=== PATIENT | male | born 1950 | race Caucasian/White ===

== ENCOUNTER → 2018-02-07 | Outpatient (CLI) | payer MEDICARE, BC ==
--- NOTE | 2018-02-08 06:36 | ECHOF ---
Referral Reason:R06.02 SOB MEASUREMENTS -------- HEIGHT: 182.9 cm WEIGHT: 131.5 kg BP: RVIDd: 3.1 cm (< 3.3) IVSd: 1.4 cm (0.6 - 1.1) LVIDd: 4.7 cm (3.9 - 5.3) LVPWd: 1.5 cm (0.6 - 1.1) IVSs: 1.4 cm LVIDs: 4.1 cm LVPWs: 1.7 cm LA Diam: 4.1 cm (2.7 - 3.8) LAESV Index (A-L): 36.38 ml/m Ao Diam: 3.4 cm (2.0 - 3.7) AV Cusp: 2.2 cm (1.5 - 2.6) LA Diam: 4.3 cm (2.7 - 3.8) MV EXCURSION: 26.377 mm (> 18.000) MV EF SLOPE: 115 mm/s (70 - 150) EPSS: 0.5 cm MV E Juan: 0.55 m/s MV DecT: 244 ms MV A Juan: 0.89 m/s MV E/A Ratio: 0.62 RAP: 5.00 mmHg RVSP: 22.27 mmHg FINDINGS -------- Sinus rhythm. This was a technically adequate study. Morbid Obesity The left ventricular size is normal. There is mild concentric left ventricular hypertrophy. Overa ll left ventricular systolic function is normal with, an EF between 55 - 60 %. The right ventricle is normal in size. LA is moderately dilated 34-39 ml/m2 The right atrial size is normal. The aortic valve is trileaflet, and appears structurally normal. No aortic stenosis or regurgitation. The mitral valve is normal. Mild mitral regurgitation is present. Mild tricuspid regurgitation present. There is no evidence of pulmonary hypertension. The right v entricular systolic pressure, as measured by Doppler, is 22.27mmHg. The pulmonic valve was not well visualized. There is no pulmonic regurgitation present. The aortic root size is normal. There is no pericardial effusion. CONCLUSIONS -------- 1. Sinus rhythm. 2. Morbid Obesity 3. The left ventricular size is normal. 4. There is mild concentric left ventricular hypertrophy. 5. Overall left ventricular systolic function is normal with, an EF between 55 - 60 %. 6. LA is moderately dilated 34-39 ml/m2 7. The aortic valve is trileaflet, and appears structurally normal. No aortic stenosis or regurgitati on. 8. Mild mitral regurgitation is present. 9. Mild tricuspid regurgitation present. 10. There is no evidence of pulmonary hypertension. 11. The pulmonic valve was not well visualized. 12. There is no pulmonic regurgitation present. 13. The aortic root size is normal. 14. There is no pericardial effusion. AFFILIATE MARKETING SPECIALIST: Joann Lomeli RDCS
== END ==
LOC: RADECHMAIN 13:44
PROVIDERS: ATTEND Internal Medicine Pulmonary Disease
DX: I08.1 Rheumatic disorders of both mitral and tricuspid valves (principal); E66.01 Morbid (severe) obesity due to excess calories
CPT/HCPCS: 93306

== ENCOUNTER 2018-05-03 07:12 | Day surgery (SDC) | payer MEDICARE, BC ==
[2018-05-01 15:17] VITALS: BMI 39.3
[~2018-05-03 07:12] MED LIST: LACTATED RINGERS 1,000 ML IV SCH; MIDAZOLAM 2 MG/2 ML VIAL IV PRN
[2018-05-03] MEDS ORDERED: LIDOCAINE 1% 20 ML VIAL (10MG/ML) FOR IV START INTRADERMA ONE (07:42)
[2018-05-03 07:44] VITALS: RESP 16; TEMP 98
[2018-05-03 07:49] LABS: Glucose,Whole Blood 89 mg/dL (75-99)
[2018-05-03] MEDS ORDERED: PROPOFOL 10 MG/ML 20 ML VIAL IV ONE (08:08)
[2018-05-03] MEDS ORDERED: LIDOCAINE 1% INJ 10MG/ML (20 ML MDV) ONE (08:08)
--- NOTE | 2018-05-03 08:20 | P.PCN ---
Date of Procedure: 05/03/18 Procedure(s) Performed: BRIEF HISTORY: Patient is a 67-year-old, pleasant, male, scheduled for an upper endoscopy as a part of value should long-standing history of GERD and intermittent dysphagia to solids for the last few months duration. He often has trouble swallowing pills and occasionally with meat. PROCEDURE PERFORMED: Esophagogastroduodenoscopy with biopsy. PREOPERATIVE DIAGNOSIS: Long-standing history of GERD/intermittent dysphagia to pills. IV sedation per anesthesia. PROCEDURE: After informed consent was obtained, the patient was brought into the endoscopy unit. IV sedation was administered by Anesthesia under continuous monitoring. Initially the Olympus GIF-190 video endoscope was inserted into the mouth. Esophagus intubated without any difficulty. It was gradually advanced into the stomach and duodenum and carefully examined. The bulb and the second part of the duodenum appeared normal. The scope at this time was withdrawn to the stomach, adequately insufflated with air, and upon careful examination, mucosa of the antrum, had scattered erosions and biopsies were done from this area. The body, cardia and the fundus appeared normal. Small hiatal hernia noted. The scope was then withdrawn into the esophagus. The GE junction was located at 39 cm from the incisors. The esophagus appeared normal. There were no erosions or ulcerations seen. The proximal cervical esophagus was carefully examined and there was no evidence of esophageal web or Zenker's diverticulum seen. No stricture noted and the patient tolerated the procedure well. IMPRESSION: 1. Normal-appearing esophagus with no evidence of esophagitis or esophageal stricture. 2. Small hiatal hernia and mild antral gastritis. RECOMMENDATIONS: The findings of this examination were discussed with the patient as well as his family. He was advised to follow with the biopsy results. He'll continue with omeprazole 20 mg daily and continue to follow antireflux measures..
[2018-05-03 08:43] VITALS: BP 153/83; PULSE 64
== END 2018-05-03 09:00 | disposition home or self-care (01) ==
LOC: ORWHC2ENDO 07:12
PROVIDERS: ATTEND Internal Medicine Gastroenterology
DX: K21.0 Gastro-esophageal reflux disease with esophagitis (principal); K29.50 Unspecified chronic gastritis without bleeding; K44.9 Diaphragmatic hernia without obstruction or gangrene; I10 Essential (primary) hypertension; E78.5 Hyperlipidemia, unspecified; J44.9 Chronic obstructive pulmonary disease, unspecified; E11.9 Type 2 diabetes mellitus without complications; E66.9 Obesity, unspecified; Z68.39 Body mass index [BMI] 39.0-39.9, adult; Z79.84 Long term (current) use of oral hypoglycemic drugs; Z79.1 Long term (current) use of non-steroidal anti-inflammatories (NSAID); Z79.899 Other long term (current) drug therapy; Z79.51 Long term (current) use of inhaled steroids
CPT/HCPCS: 43239; J2001; J2704; 88305; 88312

== ENCOUNTER → 2018-11-16 | Outpatient (CLI) | payer MEDICARE, BC ==
--- NOTE | 2018-11-16 15:22 | XR ---
EXAMINATION TYPE: XR foot complete bilateral DATE OF EXAM: 11/16/2018 COMPARISON: NONE HISTORY: 68-year-old male with pain. M79.671, M79.672 TECHNIQUE: 3 views each FINDINGS: Mild degenerative change in both first MTP joints. Mild hallux valgus is suggested on the right. Some enthesopathic change at the fifth metatarsal base on the left. Small posterior and plantar calcaneal spurs on both sides. No acute fracture, subluxation, or dislocation seen. IMPRESSION: Mild degenerative change at the bilateral first MTP joints. Mild hallux valgus. Small posterior and p lantar calcaneal spurs. No acute osseous abnormality seen.
== END | disposition home or self-care (01) ==
LOC: RADXRMAIN 14:22
PROVIDERS: ATTEND Family Medicine
DX: M19.071 Primary osteoarthritis, right ankle and foot (principal); M19.072 Primary osteoarthritis, left ankle and foot; M77.31 Calcaneal spur, right foot; M77.32 Calcaneal spur, left foot; M20.10 Hallux valgus (acquired), unspecified foot

== ENCOUNTER 2019-12-11 14:00 | Inpatient (IN) | payer MEDICARE, BC ==
--- NOTE | 2019-12-11 14:34 | ED ---
General Adult HPI - General Chief complaint: Shortness of Breath Stated complaint: Blood clot in lung Time Seen by Provider: 12/11/19 14:05 Source: patient, RN notes reviewed, old records reviewed Mode of arrival: wheelchair Limitations: no limitations - History of Present Illness Initial comments: This is a 69-year-old male who presents emergency Department with a two-week history of difficulty breathing some left-sided chest pain. Patient states sh e's been seen by his applications engineer and business department chair. [employer] Cutter Hand sent him in for CAT scan and on his way home from [facility] he was called and told that he had a clot his lungs and he needed to get to a hospital. Patient states he doesn't [place] so he stopped [facility]. She states currently he has an occasional sharp pain in the left side of his chest but he is not short of breath as long as he stays in bed. Patient states anytime he gets up and walks around she is much more short of breath. Patient denies any swelling to his legs or calf tenderness. Patient denies any history of clots in the past. Patient denies any abdominal pain. Patient denies any nausea vomiting diarrhea. Patient denies any recent fever chills or cough. - Related Data Home Medications Medication Instructions Recorded Confirmed Albuterol Inhaler [Ventolin Hfa 2 puff INHALATION RT-QID PRN 05/01/18 12/11/19 Inhaler] Aspirin 325 mg PO DAILY 05/01/18 12/11/19 Atorvastatin [Lipitor] 40 mg PO DAILY 05/01/18 12/11/19 Budesonide [Pulmicort] 0.5 mg INHALATION RT-BID 05/01/18 12/11/19 Budesonide-Formot 160-4.5 Mcg 2 puff INHALATION RT-BID 05/01/18 12/11/19 [Symbicort 160-4.5 Mcg Inhaler] Cholecalciferol (Vitamin D3) 2,000 unit PO DAILY 05/01/18 12/11/19 [Vitamin D3] Fluticasone Nasal [place] [Flonase 2 spray EA NOSTRIL DAILY 05/01/18 12/11/19 Nasal [place]] Lisinopril 40 mg PO DAILY 05/01/18 12/11/19 Loratadine [Claritin] 10 mg PO DAILY 05/01/18 12/11/19 Montelukast [Singulair] 10 mg PO DAILY 05/01/18 12/11/19 Multivitamins, Thera [Multivitamin 1 tab PO DAILY 05/01/18 12/11/19 (formulary)] Naproxen Sodium [Aleve] 220 mg PO DAILY 05/01/18 12/11/19 Omeprazole 20 mg PO DAILY 05/01/18 12/11/19 Pregabalin [Lyrica] 225 mg PO BID 05/01/18 12/11/19 metFORMIN HCL [Glucophage] 500 mg PO DAILY 05/01/18 12/11/19 Acetaminophen Tab [Tylenol Tab] 1,000 mg PO Q6H PRN 12/11/19 12/11/19 Amoxicillin 1,000 mg PO ONCE PRN 12/11/19 12/11/19 Calcium Carbonate 500 mg PO DAILY 12/11/19 12/11/19 Ibuprofen [Motrin Ib] 400 mg PO Q6H PRN 12/11/19 12/11/19 Ipratropium [place] [Ipratropium 2 sprays EA NOSTRIL TID 12/11/19 12/11/19 [place] 0.03%] Ipratropium-Albuterol Nebulize 3 ml INHALATION RT-QID 12/11/19 12/11/19 [Duoneb 0.5 mg-3 mg/3 ml Soln] Magnesium Oxide [Mag-Ox] 250 mg PO DAILY 12/11/19 12/11/19 Triamterene/Hydrochlorothiazid 1 tab PO DAILY 12/11/19 12/11/19 [Triamterene-Hctz 37.5-25 mg Tb] amLODIPine [Norvasc] 2.5 mg PO DAILY 12/11/19 12/11/19 predniSONE 150 mg PO ONCE 12/11/19 12/11/19 rOPINIRole HCL [Requip XL] 4 mg PO DAILY 12/11/19 12/11/19 valACYclovir HCL [Valtrex] 2,000 mg PO BID PRN 12/11/19 12/11/19 Allergies Allergy/AdvReac Type Severity Reaction Status Date / Time No Known Allergies Allergy Verified 12/11/19 14:05 Review of Systems ROS Statement: Those systems with pertinent positive or pertinent negative responses have been documented in the HPI. ROS Other: All systems not noted in ROS Statement are negative. Past Medical History Past Medical History: Asthma, COPD, Diabetes Mellitus, GERD/Reflux, Hyperlipidemia, Hypertension, Osteoarthritis (OA) Additional Past Medical History / Comment(s): SOME TROUBLE SWALLOWING History of Any Multi-Drug Resistant Organisms: None Reported Past Surgical History: Appendectomy, Joint Replacement Additional Past Surgical History / Comment(s): COLONOSCOPY, EGD, NODULE IN THROAT" RIGHT KNEE SURGERY-ARTHROTOMY, RIGHT AND LEFT TOTAL KNEE, PAIN CLINIC PROCEDURES, Past Anesthesia/Blood Transfusion Reactions: No Reported Reaction Past Psychological History: No Psychological Hx Reported Smoking Status: Former smoker Past Alcohol Use History: None Reported Past Drug Use History: None Reported - Past Family History Brother(s) Family Medical History: Cancer Sister(s) Family Medical History: Cancer General Exam - General Exam Comments Initial Comments: GENERAL: Patient is well-developed and well-nourished. Patient is nontoxic and well- hydrated and is in no acute distress. ENT: Neck is soft and supple. No significant lymphadenopathy is noted. Oropharynx is clear. Moist mucous membranes. Neck has full range of motion without eliciting any pain. EYES: The sclera were anicteric and conjunctiva were pink and moist. Extraocular movements were intact and pupils were equal round and reactive to light. Eyelids were unremarkable. PULMONARY: Unlabored respirations. Good breath sounds bilaterally. No audible rales rhonchi or wheezing was noted. CARDIOVASCULAR: There is a regular rate and rhythm without any murmurs gallops or rubs. ABDOMEN: Soft and nontender with normal bowel sounds. SKIN: Skin is clear with no lesions or rashes and otherwise unremarkable. NEUROLOGIC: Patient is alert and oriented x3. Cranial nerves II through XII are grossly intact. Motor and sensory are also intact. Normal speech, volume and content. Symmetrical smile. MUSCULOSKELETAL: Normal extremities with adequate strength and full range of motion. LYMPHATICS: No significant lymphadenopathy is noted PSYCHIATRIC: Normal psychiatric evaluation. Limitations: no limitations Course Vital Signs 12/11/19 14:02 Temperature 97.7 F Pulse Rate 61 Respiratory 18 Rate Blood Pressure 153/78 O2 Sat by Pulse 98 Oximetry Medical Decision Making - Medical Decision Making I reviewed the CAT scan from [facility] and it didn't indicate that there was a right pulmonary embolism. I spoke with Dr. Resendez he agreed to admit the patient admitted the patient wrote admitting orders. I started the patient on high-dose heparin in the emergency department continued high-dose heparin on the floor. - Lab Data Result diagrams: 12/11/19 14:47 12/11/19 14:47 Lab Results 12/11/19 12/11/19 12/11/19 Range/Units 14:47 14:47 14:47 WBC 7.9 (3.8-10.6) k/uL RBC 4.76 (4.30-5.90) m/uL Hgb 13.6 (13.0-17.5) gm/dL Hct 40.2 (39.0-53.0) % MCV 84.5 (80.0-100.0) fL MCH 28.5 (25.0-35.0) pg MCHC 33.8 (31.0-37.0) g/dL RDW 14.1 (11.5-15.5) % Plt Count 256 (150-450) k/uL Neutrophils % 87 % Lymphocytes % 11 % Monocytes % 2 % Eosinophils % 0 % Basophils % 0 % Neutrophils # 6.8 (1.3-7.7) k/uL Lymphocytes # 0.8 L (1.0-4.8) k/uL Monocytes # 0.1 (0-1.0) k/uL Eosinophils # 0.0 (0-0.7) k/uL Basophils # 0.0 (0-0.2) k/uL PT 9.9 (9.0-12.0) sec INR 0.9 (<1.2) APTT 21.7 L (22.0-30.0) sec Sodium 132 L (137-145) mmol/L Potassium 5.4 H (3.5-5.1) mmol/L Chloride 100 (98-107) mmol/L Carbon Dioxide 21 L (22-30) mmol/L Anion Gap 11 mmol/L BUN 23 H (9-20) mg/dL Creatinine 1.28 H (0.66-1.25) mg/dL Est GFR (CKD-EPI)AfAm 65 (>60 ml/min/1.73 sqM) Est GFR (CKD-EPI)NonAf 56 (>60 ml/min/1.73 sqM) Glucose 159 H (74-99) mg/dL Calcium 8.7 (8.4-10.2) mg/dL Total Bilirubin 0.6 (0.2-1.3) mg/dL AST 34 (17-59) U/L ALT 37 (4-49) U/L Alkaline Phosphatase 76 (38-126) U/L Total Protein 6.8 (6.3-8.2) g/dL Albumin 4.0 (3.5-5.0) g/dL Critical Care Time Critical Care Time: Yes Total Critical Care Time: 35 Disposition Clinical Impression: Pulmonary embolism Disposition: ADMITTED IP TO THIS HOSP Referrals: Ginger Pinto MD [Primary Care Provider] - 1-2 days Time of Disposition: 16:01
[2019-12-11] MEDS ORDERED: KETOROLAC 60 MG/2 ML VIAL IVP STA (14:35)
[2019-12-11 15:05] LABS: Basophils % (A) 0 %; Eosinophils % (A) 0 %; HCT 40.2 % (39.0-53.0); HGB 13.6 gm/dL (13.0-17.5); Lymphocytes # (A) 0.8 k/uL (1.0-4.8); Lymphocytes % (A) 11 %; MCH 28.5 pg (25.0-35.0); MCHC 33.8 g/dL (31.0-37.0); MCV 84.5 fL (80.0-100.0); Mean Platelet Volume 8.8; Monocytes # (A) 0.1 k/uL (0-1.0); Monocytes % (A) 2 %; Neutrophils # (A) 6.8 k/uL (1.3-7.7); Neutrophils % (A) 87 %; Platelet Count 256 k/uL (150-450); RBC 4.76 m/uL (4.30-5.90); RDW 14.1 % (11.5-15.5); WBC 7.9 k/uL (3.8-10.6)
[2019-12-11 15:19] LABS: INR 0.9 (<1.2); Prothrombin Time 9.9 sec (9.0-12.0)
[2019-12-11 15:21] LABS: Partial Thromboplastin Time 21.7 sec (22.0-30.0)
[2019-12-11 15:23] LABS: Calcium 8.7 mg/dL (8.4-10.2); Potassium 5.4 mmol/L (3.5-5.1); Total Bilirubin 0.6 mg/dL (0.2-1.3); Total Protein 6.8 g/dL (6.3-8.2)
[2019-12-11] MEDS ORDERED: HEPARIN SODIUM,PORCINE 10,000 UNIT/ML 1 ML VIAL IV ONE (15:50)
[2019-12-11] MEDS ORDERED: SODIUM CHLORIDE 0.9% 1,000 ML IV ONE (16:01)
[2019-12-11] MEDS: HEPARIN SOD,PORK IN 0.45% NACL 25,000 UNIT in 0.45% NACL 1 250ML.BAG IV SCH (16:27)
[2019-12-11] MEDS ORDERED: IBUPROFEN 200 MG TAB PO PRN (19:07)
[2019-12-11] MEDS ORDERED: ALBUTEROL NEBULIZED 2.5 MG/3 ML INHALATION PRN (19:07)
[2019-12-11] MEDS ORDERED: AMOXICILLIN 500 MG CAP PO PRN (19:07)
[2019-12-11] MEDS ORDERED: ACETAMINOPHEN TAB 500 MG TAB PO PRN (19:07)
[2019-12-11] MEDS: PREGABALIN 75 MG CAP PO SCH (20:38)
[2019-12-11 20:56] LABS: Glucose,Whole Blood 134 mg/dL (75-99)
[2019-12-11] MEDS: INSULIN ASPART (NovoLOG) 100 UNIT/ML VIAL SQ SCH (21:23)
[2019-12-12] MEDS: IPRATROPIUM-ALBUTEROL 3 ML NEB INHALATION SCH ×5 (00:02→20:14)
[2019-12-12] MEDS: BUDESONIDE 0.5 MG/2 ML NEBU INHALATION SCH ×3 (00:02→20:14)
[2019-12-12] MEDS: HEPARIN SOD,PORK IN 0.45% NACL 25,000 UNIT in 0.45% NACL 1 250ML.BAG IV SCH ×2 (05:31→15:26)
[2019-12-12 06:26] LABS: Basophils % (A) 0 %; Eosinophils % (A) 0 %; HGB 12.2 gm/dL (13.0-17.5); Lymphocytes # (A) 1.7 k/uL (1.0-4.8); Lymphocytes % (A) 18 %; MCH 28.3 pg (25.0-35.0); MCHC 32.9 g/dL (31.0-37.0); MCV 85.9 fL (80.0-100.0); Mean Platelet Volume 8.6; Monocytes # (A) 0.6 k/uL (0-1.0); Monocytes % (A) 6 %; Neutrophils # (A) 6.9 k/uL (1.3-7.7); Neutrophils % (A) 73 %; Platelet Count 226 k/uL (150-450); RBC 4.31 m/uL (4.30-5.90); RDW 14.1 % (11.5-15.5); WBC 9.4 k/uL (3.8-10.6)
[2019-12-12] MEDS: INSULIN ASPART (NovoLOG) 100 UNIT/ML VIAL SQ SCH ×4 (06:35→20:34)
[2019-12-12 06:36] LABS: Glucose,Whole Blood 123 mg/dL (75-99)
[2019-12-12 07:16] LABS: Albumin 3.3 g/dL (3.5-5.0); Calcium 8.5 mg/dL (8.4-10.2); Potassium 4.9 mmol/L (3.5-5.1); Total Bilirubin 0.4 mg/dL (0.2-1.3)
[2019-12-12] MEDS: IPRATROPIUM BROMIDE 0.06% NASAL SPRAY (15 ML) EA NOSTRIL SCH ×3 (07:58→15:26)
[2019-12-12] MEDS: FLUTICASONE 50MCG/SPRAY NASAL 16GM EA NOSTRIL SCH (09:03)
[2019-12-12] MEDS: ATORVASTATIN 40 MG TAB PO SCH (09:04)
[2019-12-12] MEDS: TRIAMTERENE-HCTZ 37.5-25MG 1 EACH TAB PO SCH (09:04)
[2019-12-12] MEDS: CALCIUM CARBONATE 500 MG CHEWABLE PO SCH (09:04)
[2019-12-12] MEDS: ASPIRIN 325 MG TAB PO SCH (09:04)
[2019-12-12] MEDS: PREGABALIN 75 MG CAP PO SCH ×2 (09:04→20:39)
[2019-12-12] MEDS: NAPROXEN 250 MG TAB PO SCH (09:05)
[2019-12-12] MEDS: MULTIVITAMINS, THERA 1 EACH TAB PO SCH (09:05)
[2019-12-12] MEDS: amLODIPine 2.5 MG TAB PO SCH (09:05)
[2019-12-12] MEDS: MAGNESIUM OXIDE 400 MG TAB PO SCH (09:05)
[2019-12-12] MEDS: LORATADINE 10 MG TAB PO SCH (09:05)
[2019-12-12] MEDS: PANTOPRAZOLE 40 MG TABLET PO SCH (09:05)
[2019-12-12] MEDS: MONTELUKAST 10 MG TAB PO SCH (09:05)
[2019-12-12] MEDS: CHOLECALCIFEROL 1,000 UNIT TAB PO SCH (09:05)
[2019-12-12] MEDS: LISINOPRIL 20 MG TAB PO SCH (09:05)
--- NOTE | 2019-12-12 11:22 | P.CNPUL ---
History of Present Illness Consult date: 12/12/19 Reason for consult: dyspnea, chest pain, asthma, COPD Chief complaint: Shortness of breath History of present illness: This is a 69-year-old male who was seen eval reexamined on the third floor, patient is morbidly obese 69-year-old male of Dr. 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 their advice a spiral computed tomography scan of the chest came back positive for pulmonary embolism, patient has been admitted to the computed tomography scan was done at [facility] currently patient has been on heparin, he had the bilateral lower extremity edema as well Review of Systems All systems: negative Past Medical History Past Medical History: Asthma, COPD, Diabetes Mellitus, GERD/Reflux, Hyperlipidemia, Hypertension, Osteoarthritis (OA), Pulmonary Embolus (PE) Additional Past Medical History / Comment(s): SOME TROUBLE SWALLOWING History of Any Multi-Drug Resistant Organisms: None Reported Past Surgical History: Appendectomy, Joint Replacement Additional Past Surgical History / Comment(s): COLONOSCOPY, EGD, NODULE IN TH ROAT" RIGHT KNEE SURGERY-ARTHROTOMY, RIGHT AND LEFT TOTAL KNEE, PAIN CLINIC PROCEDURES, Past Anesthesia/Blood Transfusion Reactions: No Reported Reaction Past Psychological History: No Psychological Hx Reported Smoking Status: Former smoker Past Alcohol Use History: None Reported Additional Past Alcohol Use History / Comment(s): STARTED SMOKING AT AGE 17 QUIT IN 1992 SMOKED 3/4 PPD Past Drug Use History: None Reported - Past Family History Brother(s) Family Medical History: Cancer Sister(s) Family Medical History: Cancer Medications and Allergies Home Medications Medication Instructions Recorded Confirmed Type Albuterol Inhaler [Ventolin Hfa 2 puff INHALATION RT-QID PRN 05/01/18 12/11/19 History Inhaler] Aspirin 325 mg PO DAILY 05/01/18 12/11/19 History Atorvastatin [Lipitor] 40 mg PO DAILY 05/01/18 12/11/19 History Budesonide [Pulmicort] 0.5 mg INHALATION RT-BID 05/01/18 12/11/19 History Budesonide-Formot 160-4.5 Mcg 2 puff INHALATION RT-BID 05/01/18 12/11/19 History [Symbicort 160-4.5 Mcg Inhaler] Cholecalciferol (Vitamin D3) 2,000 unit PO DAILY 05/01/18 12/11/19 History [Vitamin D3] Fluticasone Nasal [place] [Flonase 2 spray EA NOSTRIL DAILY 05/01/18 12/11/19 History Nasal [place]] Lisinopril 40 mg PO DAILY 05/01/18 12/11/19 History Loratadine [Claritin] 10 mg PO DAILY 05/01/18 12/11/19 History Montelukast [Singulair] 10 mg PO DAILY 05/01/18 12/11/19 History Multivitamins, Thera [Multivitamin 1 tab PO DAILY 05/01/18 12/11/19 History (formulary)] Naproxen Sodium [Aleve] 220 mg PO DAILY 05/01/18 12/11/19 History Omeprazole 20 mg PO DAILY 05/01/18 12/11/19 History Pregabalin [Lyrica] 225 mg PO BID 05/01/18 12/11/19 History metFORMIN HCL [Glucophage] 500 mg PO DAILY 05/01/18 12/11/19 History Acetaminophen Tab [Tylenol Tab] 1,000 mg PO Q6H PRN 12/11/19 12/11/19 History Amoxicillin 1,000 mg PO ONCE PRN 12/11/19 12/11/19 History Calcium Carbonate 500 mg PO DAILY 12/11/19 12/11/19 History Ibuprofen [Motrin Ib] 400 mg PO Q6H PRN 12/11/19 12/11/19 History Ipratropium [place] [Ipratropium 2 sprays EA NOSTRIL TID 12/11/19 12/11/19 History [place] 0.03%] Ipratropium-Albuterol Nebulize 3 ml INHALATION RT-QID 12/11/19 12/11/19 History [Duoneb 0.5 mg-3 mg/3 ml Soln] Magnesium Oxide [Mag-Ox] 250 mg PO DAILY 12/11/19 12/11/19 History Triamterene/Hydrochlorothiazid 1 tab PO DAILY 12/11/19 12/11/19 History [Triamterene-Hctz 37.5-25 mg Tb] amLODIPine [Norvasc] 2.5 mg PO DAILY 12/11/19 12/11/19 History predniSONE 150 mg PO ONCE 12/11/19 12/11/19 History rOPINIRole HCL [Requip XL] 4 mg PO DAILY 12/11/19 12/11/19 History valACYclovir HCL [Valtrex] 2,000 mg PO BID PRN 12/11/19 12/11/19 History Allergies Allergy/AdvReac Type Severity Reaction Status Date / Time No Known Allergies Allergy Verified 12/11/19 14:05 Physical Exam Vitals: Vital Signs Temp Pulse Pulse Resp BP BP Pulse Ox 12/12/19 09:00 113/53 12/12/19 08:17 72 12/12/19 08:00 97.6 F 67 18 98/49 98 12/12/19 07:59 72 12/12/19 04:00 98.8 F 58 L 18 104/58 97 12/12/19 00:00 98.1 F 60 18 114/66 96 12/11/19 20:00 98.4 F 66 18 110/55 95 12/11/19 18:12 97.6 F 66 16 153/70 94 L 12/11/19 17:38 18 12/11/19 17:30 110/68 95 12/11/19 17:05 16 12/11/19 17:00 99/60 94 L 12/11/19 16:30 109/61 96 12/11/19 16:05 16 12/11/19 16:00 113/65 96 12/11/19 15:30 118/67 95 12/11/19 15:05 16 12/11/19 15:00 112/66 95 12/11/19 14:55 94 L 12/11/19 14:05 16 12/11/19 14:02 97.7 F 61 18 153/78 98 Intake and Output 12/11/19 12/12/19 12/12/19 22:59 06:59 14:59 Intake Total 790.000 240 Output Total 300 500 Balance 490.000 -260 Intake: Intake, IV Titration 550.000 Amount Heparin Sod,Pork in 0.45% 250.000 NaCl 25,000 unit In 0.45 % NaCl 1 250ml.bag @ 17 UNITS/KG/HR 21.899 mls/hr IV .[id number] [facility] Rx#: [id number] Sodium Chloride 0.9% 1, 300 000 ml @ 75 mls/hr IV . [id number] Rx#:[id number] Oral 240 240 Output: Urine 300 500 Other: Voiding Method Toilet Toilet # Voids 2 Weight 128.82 kg 126.1 kg - Constitutional General appearance: cooperative, disheveled, morbidly obese - EENT Eyes: EOMI, PERRLA Ears: bilateral: normal - Neck Neck: normal ROM Carotids: bilateral: upstroke normal Thyroid: bilateral: normal size - Respiratory Respiratory: bilateral: CTA - Cardiovascular Rhythm: regular Heart sounds: normal: S1, S2 - Neurologic Neurologic: CNII-XII intact - Musculoskeletal Musculoskeletal: gait normal, generalized weakness, strength equal bilaterally - Psychiatric Psychiatric: A&O x's 3, appropriate affect, intact judgment & insight Results - Laboratory Findings CBC and BMP: 12/12/19 05:30 12/12/19 05:30 PT/INR, D-dimer PT 9.9 sec (9.0-12.0) 12/11/19 14:47 INR 0.9 (<1.2) 12/11/19 14:47 Abnormal lab findings: Abnormal Labs 12/11/19 12/11/19 12/11/19 14:47 14:47 14:47 Hgb Hct Lymphocytes # 0.8 L APTT 21.7 L Sodium 132 L Potassium 5.4 H Carbon Dioxide 21 L BUN 23 H Creatinine 1.28 H Glucose 159 H POC Glucose (mg/dL) Total Protein Albumin 12/11/19 12/11/19 12/12/19 20:46 22:11 05:30 Hgb 12.2 L Hct 37.0 L Lymphocytes # APTT 145.1 H* Sodium Potassium Carbon Dioxide BUN Creatinine Glucose POC Glucose (mg/dL) 134 H Total Protein Albumin 12/12/19 12/12/19 12/12/19 05:30 05:30 06:34 Hgb Hct Lymphocytes # APTT 81.7 H Sodium 135 L Potassium Carbon Dioxide BUN 26 H Creatinine Glucose 120 H POC Glucose (mg/dL) 123 H Total Protein 6.0 L Albumin 3.3 L Assessment and Plan Assessment: Pulmonary embolism Likely deep venous thrombosis Chronic intermittent asthma COPD Morbid obesity Dyslipidemia Hypertension hypertensive cardiovascular disease Type 2 diabetes mellitus Plan: Continue IV heparin Eliquis to be started 10 mg twice a day from tomorrow Check duplex ultrasound of the both lower extremity Obtain reports from Lorenzo roach for computed tomography scan Time with Patient: Greater than 30
[2019-12-12 12:03] LABS: Glucose,Whole Blood 85 mg/dL (75-99)
--- NOTE | 2019-12-12 12:32 | US ---
EXAMINATION TYPE: US venous doppler duplex LE DATE OF EXAM: 12/12/2019 11:39 AM COMPARISON: NONE CLINICAL HISTORY: PE, edema. Patient denies leg swelling SIDE PERFORMED: Bilateral TECHNIQUE: The lower extremity deep venous system is examined utilizing real time linear array sonog dion with graded compression, doppler sonography and color-flow sonography. VESSELS IMAGED: Common Femoral Vein Deep Femoral Vein Greater Saphenous Vein * Femoral Vein Popliteal Vein Small Saphenous Vein * Proximal Calf Veins (* superficial vessels) Grayscale, color doppler, spectral doppler imaging performed of the deep veins of the lower extremiti es. There is normal flow, compressibility, vascular waveforms. Right Leg: Negative for DVT Left Leg: Negative for DVT IMPRESSION: No sonographic evidence of deep venous thrombosis within the bilateral visualized lower extremities.
--- NOTE | 2019-12-12 13:58 | P.HPIM ---
History of Present Illness H&P Date: 12/12/19 Chief Complaint: Pulmonary embolus This is a 69-year-old man, a patient of Dr. Pinto. He has a known past medical history of COPD, diabetes, hyperlipidemia, hypertension and GERD. Patient reports having episodes of chest pain and shortness of breath over the last 2-[address] Pinto headset patient to to be seen by cardiology. They ordered a CTA of the chest at [facility]. According to patient he was told by the precinct i police sergeant that the test was positive for PE and to present to go to the hospital for treatment. CTA that was completed at [facility] reports correlate for right-sided PE. There is a 1.8 cm lesion on the dome of the liver. Abdominal MRI recommended. Patient was started on IV heparin in the ER. Patient has been seen by pulmonary service. The recommending to start patient on Eliquis tomorrow. Patient does report improvement in his chest pain and shortness of breath. He also had some dehydration with a creatinine of 1.28 has come down to 1.11. Venous Doppler was negative for DVT bilaterally. Patient denies any leg pain. Patient denies any traveling or being in a stationary position for any period of time. Denies any history of cancer. Denies any family history of blood clots. He denies any prior history of blood clots. Review of Systems Please refer to HPI otherwise unremarkable Past Medical History Past Medical History: Asthma, COPD, Diabetes Mellitus, GERD/Reflux, Hyperlipidemia, Hypertension, Osteoarthritis (OA), Pulmonary Embolus (PE) Additional Past Medical History / Comment(s): SOME TROUBLE SWALLOWING History of Any Multi-Drug Resistant Organisms: None Reported Past Surgical History: Appendectomy, Joint Replacement Additional Past Surgical History / Comment(s): COLONOSCOPY, EGD, NODULE IN THROAT" RIGHT KNEE SURGERY-ARTHROTOMY, RIGHT AND LEFT TOTAL KNEE, PAIN CLINIC PROCEDURES, Past Anesthesia/Blood Transfusion Reactions: No Reported Reaction Past Psychological History: No Psychological Hx Reported Smoking Status: Former smoker Past Alcohol Use History: None Reported Additional Past Alcohol Use History / Comment(s): STARTED SMOKING AT AGE 17 QUIT IN 1992 SMOKED 3/4 PPD Past Drug Use History: None Reported - Past Family History Brother(s) Family Medical History: Cancer Sister(s) Family Medical History: Cancer Medications and Allergies Home Medications Medication Instructions Recorded Confirmed Type Albuterol Inhaler [Ventolin Hfa 2 puff INHALATION RT-QID PRN 05/01/18 12/11/19 History Inhaler] Aspirin 325 mg PO DAILY 05/01/18 12/11/19 History Atorvastatin [Lipitor] 40 mg PO DAILY 05/01/18 12/11/19 History Budesonide [Pulmicort] 0.5 mg INHALATION RT-BID 05/01/18 12/11/19 History Budesonide-Formot 160-4.5 Mcg 2 puff INHALATION RT-BID 05/01/18 12/11/19 History [Symbicort 160-4.5 Mcg Inhaler] Cholecalciferol (Vitamin D3) 2,000 unit PO DAILY 05/01/18 12/11/19 History [Vitamin D3] Fluticasone Nasal [place] [Flonase 2 spray EA NOSTRIL DAILY 05/01/18 12/11/19 History Nasal [place]] Lisinopril 40 mg PO DAILY 05/01/18 12/11/19 History Loratadine [Claritin] 10 mg PO DAILY 05/01/18 12/11/19 History Montelukast [Singulair] 10 mg PO DAILY 05/01/18 12/11/19 History Multivitamins, Thera [Multivitamin 1 tab PO DAILY 05/01/18 12/11/19 History (formulary)] Naproxen Sodium [Aleve] 220 mg PO DAILY 05/01/18 12/11/19 History Omeprazole 20 mg PO DAILY 05/01/18 12/11/19 History Pregabalin [Lyrica] 225 mg PO BID 05/01/18 12/11/19 History metFORMIN HCL [Glucophage] 500 mg PO DAILY 05/01/18 12/11/19 History Acetaminophen Tab [Tylenol Tab] 1,000 mg PO Q6H PRN 12/11/19 12/11/19 History Amoxicillin 1,000 mg PO ONCE PRN 12/11/19 12/11/19 History Calcium Carbonate 500 mg PO DAILY 12/11/19 12/11/19 History Ibuprofen [Motrin Ib] 400 mg PO Q6H PRN 12/11/19 12/11/19 History Ipratropium [place] [Ipratropium 2 sprays EA NOSTRIL TID 12/11/19 12/11/19 History [place] 0.03%] Ipratropium-Albuterol Nebulize 3 ml INHALATION RT-QID 12/11/19 12/11/19 History [Duoneb 0.5 mg-3 mg/3 ml Soln] Magnesium Oxide [Mag-Ox] 250 mg PO DAILY 12/11/19 12/11/19 History Triamterene/Hydrochlorothiazid 1 tab PO DAILY 12/11/19 12/11/19 History [Triamterene-Hctz 37.5-25 mg Tb] amLODIPine [Norvasc] 2.5 mg PO DAILY 12/11/19 12/11/19 History predniSONE 150 mg PO ONCE 12/11/19 12/11/19 History rOPINIRole HCL [Requip XL] 4 mg PO DAILY 12/11/19 12/11/19 History valACYclovir HCL [Valtrex] 2,000 mg PO BID PRN 12/11/19 12/11/19 History Allergies Allergy/AdvReac Type Severity Reaction Status Date / Time No Known Allergies Allergy Verified 12/11/19 14:05 Physical Exam Vitals: Vital Signs Temp Pulse Pulse Resp BP BP Pulse Ox 12/12/19 12:12 72 12/12/19 12:03 72 12/12/19 12:00 97.8 F 56 L 18 122/58 98 12/12/19 09:00 113/53 12/12/19 08:17 72 12/12/19 08:00 97.6 F 67 18 98/49 98 12/12/19 07:59 72 12/12/19 04:00 98.8 F 58 L 18 104/58 97 12/12/19 00:00 98.1 F 60 18 114/66 96 12/11/19 20:00 98.4 F 66 18 110/55 95 12/11/19 18:12 97.6 F 66 16 153/70 94 L 12/11/19 17:38 18 12/11/19 17:30 110/68 95 12/11/19 17:05 16 12/11/19 17:00 99/60 94 L 12/11/19 16:30 109/61 96 12/11/19 16:05 16 12/11/19 16:00 113/65 96 12/11/19 15:30 118/67 95 12/11/19 15:05 16 12/11/19 15:00 112/66 95 12/11/19 14:55 94 L 12/11/19 14:05 16 12/11/19 14:02 97.7 F 61 18 153/78 98 Intake and Output 12/11/19 12/12/19 12/12/19 22:59 06:59 14:59 Intake Total 790.000 780 Output Total 300 500 Balance 490.000 280 Intake: Intake, IV Titration 550.000 Amount Heparin Sod,Pork in 0.45% 250.000 NaCl 25,000 unit In 0.45 % NaCl 1 250ml.bag @ 17 UNITS/KG/HR 21.899 mls/hr IV .[id number] [facility] Rx#: [id number] Sodium Chloride 0.9% 1, 300 000 ml @ 75 mls/hr IV . [id number] ONE Rx#:[id number] Oral 240 780 Output: Urine 300 500 Other: Voiding Method Toilet Toilet # Voids 2 Weight 128.82 kg 126.1 kg Head normocephalic Neck supple Lungs clear to auscultation bilaterally no wheezing or crackles Heart regular rate and rhythm S1-S2, no rub or gallop Abdomen is soft nontender nondistended positive bowel sounds no hepatosp lenomegaly Extremities no edema Neuro alert and orientated to 3 Results CBC & Chem 7: 12/12/19 05:30 12/12/19 05:30 Labs: Abnormal Lab Results - Last 24 Hours (Table) 12/11/19 12/11/19 12/11/19 Range/Units 14:47 14:47 14:47 Hgb (13.0-17.5) gm/dL Hct (39.0-53.0) % Lymphocytes # 0.8 L (1.0-4.8) k/uL APTT 21.7 L (22.0-30.0) sec Sodium 132 L (137-145) mmol/L Potassium 5.4 H (3.5-5.1) mmol/L Carbon Dioxide 21 L (22-30) mmol/L BUN 23 H (9-20) mg/dL Creatinine 1.28 H (0.66-1.25) mg/dL Glucose 159 H (74-99) mg/dL POC Glucose (mg/dL) (75-99) mg/dL Total Protein (6.3-8.2) g/dL Albumin (3.5-5.0) g/dL 12/11/19 12/11/19 12/12/19 Range/Units 20:46 22:11 05:30 Hgb 12.2 L (13.0-17.5) gm/dL Hct 37.0 L (39.0-53.0) % Lymphocytes # (1.0-4.8) k/uL APTT 145.1 H* (22.0-30.0) sec Sodium (137-145) mmol/L Potassium (3.5-5.1) mmol/L Carbon Dioxide (22-30) mmol/L BUN (9-20) mg/dL Creatinine (0.66-1.25) mg/dL Glucose (74-99) mg/dL POC Glucose (mg/dL) 134 H (75-99) mg/dL Total Protein (6.3-8.2) g/dL Albumin (3.5-5.0) g/dL 12/12/19 12/12/19 12/12/19 Range/Units 05:30 05:30 06:34 Hgb (13.0-17.5) gm/dL Hct (39.0-53.0) % Lymphocytes # (1.0-4.8) k/uL APTT 81.7 H (22.0-30.0) sec Sodium 135 L (137-145) mmol/L Potassium (3.5-5.1) mmol/L Carbon Dioxide (22-30) mmol/L BUN 26 H (9-20) mg/dL Creatinine (0.66-1.25) mg/dL Glucose 120 H (74-99) mg/dL POC Glucose (mg/dL) 123 H (75-99) mg/dL Total Protein 6.0 L (6.3-8.2) g/dL Albumin 3.3 L (3.5-5.0) g/dL 12/12/19 Range/Units 13:01 Hgb (13.0-17.5) gm/dL Hct (39.0-53.0) % Lymphocytes # (1.0-4.8) k/uL APTT 54.0 H (22.0-30.0) sec Sodium (137-145) mmol/L Potassium (3.5-5.1) mmol/L Carbon Dioxide (22-30) mmol/L BUN (9-20) mg/dL Creatinine (0.66-1.25) mg/dL Glucose (74-99) mg/dL POC Glucose (mg/dL) (75-99) mg/dL Total Protein (6.3-8.2) g/dL Albumin (3.5-5.0) g/dL Thrombosis Risk Factor Assmnt - Choose All That Apply Each Factor Represents 1 point: Obesity (BMI >25), Swollen legs (current) Each Risk Factor Represents 2 Points: Age 61-74 years Each Risk Factor Represents 3 Points: History of DVT/PE Thrombosis Risk Factor Assessment Total Risk Factor Score: 7 Thrombosis Risk Factor Assessment Level: High Risk Assessment and Plan Assessment: 1. Right-sided pulmonary embolism: Continue IV heparin. Patient evaluated by pulmonary service. The recommending to start Eliquis 10 mg twice a day tomor row. Venous Doppler negative for DVT 2. Acute kidney injury: Creatinine 1.28 down to 1.11 with IV fluids 3. Hyperkalemia possibly related to acute kidney injury. Now resolved. Creatinine has gone down from 5.4-4.9 4. Essential hypertension continue current medications 5. Diabetes mellitus type 2: Continue to hold metformin. Continue NovoLog sliding scale coverage. 6. Morbid obesity 7. History of COPD stable no evidence of exacerbation 8. Hyperlipidemia continue Lipitor 9. Incidental finding of a 1.8 centimeter lesion on the dome of the liver noted on CTA at [facility]. We'll monitor GI prophylaxis Protonix and DVT prophylaxis IV heparin Time with Patient: Greater than 30 (Greater than 50% of the total time spent in counseling and coordination of care.I performed an examination of the patient and discussed their management with the physician Supervisor [employer]. I have reviewed the Physician Supervisor [employer]'s notes and agree with the documented findings and plan of care)
[2019-12-12 14:21] LABS: Hemoglobin A1C 6.6 % (4.0-6.0)
[2019-12-12 16:53] LABS: Glucose,Whole Blood 115 mg/dL (75-99)
[2019-12-12 20:32] LABS: Glucose,Whole Blood 137 mg/dL (75-99)
[2019-12-13] MEDS: IPRATROPIUM BROMIDE 0.06% NASAL SPRAY (15 ML) EA NOSTRIL SCH ×3 (02:26→16:33)
[2019-12-13] MEDS: HEPARIN SOD,PORK IN 0.45% NACL 25,000 UNIT in 0.45% NACL 1 250ML.BAG IV SCH (02:26)
[2019-12-13 06:03] LABS: Glucose,Whole Blood 99 mg/dL (75-99)
[2019-12-13] MEDS: INSULIN ASPART (NovoLOG) 100 UNIT/ML VIAL SQ SCH ×4 (06:20→20:44)
[2019-12-13 06:42] LABS: Basophils % (A) 1 %; Eosinophils # (A) 0.1 k/uL (0-0.7); Eosinophils % (A) 1 %; HCT 37.7 % (39.0-53.0); HGB 12.5 gm/dL (13.0-17.5); Lymphocytes # (A) 2.5 k/uL (1.0-4.8); Lymphocytes % (A) 44 %; MCH 28.6 pg (25.0-35.0); MCHC 33.3 g/dL (31.0-37.0); Mean Platelet Volume 8.8; Monocytes # (A) 0.4 k/uL (0-1.0); Monocytes % (A) 8 %; Neutrophils # (A) 2.4 k/uL (1.3-7.7); Neutrophils % (A) 42 %; Platelet Count 233 k/uL (150-450); RBC 4.38 m/uL (4.30-5.90); RDW 14.5 % (11.5-15.5); WBC 5.7 k/uL (3.8-10.6)
[2019-12-13 06:59] LABS: Albumin 3.3 g/dL (3.5-5.0); Calcium 8.7 mg/dL (8.4-10.2); Potassium 4.6 mmol/L (3.5-5.1); Total Bilirubin 0.3 mg/dL (0.2-1.3); Total Protein 5.9 g/dL (6.3-8.2)
[2019-12-13] MEDS: BUDESONIDE 0.5 MG/2 ML NEBU INHALATION SCH ×2 (07:32→19:13)
[2019-12-13] MEDS: IPRATROPIUM-ALBUTEROL 3 ML NEB INHALATION SCH ×4 (07:32→19:14)
[2019-12-13] MEDS: TRIAMTERENE-HCTZ 37.5-25MG 1 EACH TAB PO SCH (09:09)
[2019-12-13] MEDS: MAGNESIUM OXIDE 400 MG TAB PO SCH (09:09)
[2019-12-13] MEDS: PREGABALIN 75 MG CAP PO SCH ×2 (09:10→21:24)
[2019-12-13] MEDS: MULTIVITAMINS, THERA 1 EACH TAB PO SCH (09:10)
[2019-12-13] MEDS: MONTELUKAST 10 MG TAB PO SCH (09:10)
[2019-12-13] MEDS: PANTOPRAZOLE 40 MG TABLET PO SCH (09:10)
[2019-12-13] MEDS: ASPIRIN 325 MG TAB PO SCH (09:10)
[2019-12-13] MEDS: LORATADINE 10 MG TAB PO SCH (09:10)
[2019-12-13] MEDS: CHOLECALCIFEROL 1,000 UNIT TAB PO SCH (09:10)
[2019-12-13] MEDS: ATORVASTATIN 40 MG TAB PO SCH (09:10)
[2019-12-13] MEDS: LISINOPRIL 20 MG TAB PO SCH (09:11)
[2019-12-13] MEDS: amLODIPine 2.5 MG TAB PO SCH (09:11)
[2019-12-13] MEDS: NAPROXEN 250 MG TAB PO SCH (09:11)
[2019-12-13] MEDS: FLUTICASONE 50MCG/SPRAY NASAL 16GM EA NOSTRIL SCH (09:12)
[2019-12-13] MEDS: CALCIUM CARBONATE 500 MG CHEWABLE PO SCH (09:20)
--- NOTE | 2019-12-13 11:10 | P.PN ---
Subjective Progress Note Date: 12/13/19 Principal diagnosis: - Constitutional General appearance: cooperative, disheveled, morbidly obese - EENT Eyes: EOMI, PERRLA Ears: bilateral: normal - Neck Neck: normal ROM Carotids: bilateral: upstroke normal Thyroid: bilateral: normal size - Respiratory Respiratory: bilateral: CTA - Cardiovascular Rhythm: regular Heart sounds: normal: S1, S2 - Neurologic Neurologic: CNII-XII intact - Musculoskeletal Musculoskeletal: gait normal, generalized weakness, strength equal bilaterally - Psychiatric Psychiatric: A&O x's 3, appropriate affect, intact judgment & insight 12/13/2019, patient seen eval examined during the rounds labs reviewed medications reviewed computed tomography scan from a [facility] reviewed confirm presence of pulmonary embolism, patient is on heparin doing well asthma symptoms are well controlled, patient is being changed to oral anticoagulants This is a 69-year-old male who was seen eval reexamined on the third floor, patient is morbidly obese 69-year-old male of Dr. Enedina day patient has been having off-and-on chest tightness and shortness of breath for 2-3 week going on he had the some tightness in the calf several weeks ago with sharp pain which is spontaneously resolved, patient has seen his supervisor waterworks their advice a spiral computed tomography scan of the chest came back positive for pulmonary embolism, patient has been admitted to the computed tomography scan was done at [facility] currently patient has been on heparin, he had the bilateral lower extremity edema as well Objective - Vital Signs Vital signs: Vital Signs Temp 97.7 F 12/13/19 08:00 Pulse 69 12/13/19 08:00 Resp 17 12/13/19 08:00 BP 123/65 12/13/19 08:00 Pulse Ox 93 L 12/13/19 08:00 Intake & Output 12/12/19 12/13/19 12/13/19 18:59 06:59 18:59 Intake Total 1860 480 240 Output Total 2074 Balance -215 480 240 Weight 124.4 kg Intake: Oral 1860 480 240 Output: Urine 2074 Other: Voiding Method Toilet Toilet Toilet # Voids 2 3 3 - Exam - Constitutional General appearance: cooperative, disheveled, morbidly obese - EENT Eyes: EOMI, PERRLA Ears: bilateral: normal - Neck Neck: normal ROM Carotids: bilateral: upstroke normal Thyroid: bilateral: normal size - Respiratory Respiratory: bilateral: CTA - Cardiovascular Rhythm: regular Heart sounds: normal: S1, S2 - Neurologic Neurologic: CNII-XII intact - Musculoskeletal Musculoskeletal: gait normal, generalized weakness, strength equal bilaterally - Psychiatric Psychiatric: A&O x's 3, appropriate affect, intact judgment & insight - Labs CBC & Chem 7: 12/13/19 05:59 12/13/19 05:59 Labs: Abnormal Lab Results - Last 24 Hours (Table) 12/12/19 12/12/19 12/12/19 Range/Units 05:30 13:01 16:42 Hgb (13.0-17.5) gm/dL Hct (39.0-53.0) % APTT 54.0 H (22.0-30.0) sec BUN (9-20) mg/dL POC Glucose (mg/dL) 115 H (75-99) mg/dL Hemoglobin A1c 6.6 H (4.0-6.0) % Total Protein (6.3-8.2) g/dL Albumin (3.5-5.0) g/dL 12/12/19 12/13/19 12/13/19 Range/Units 20:31 05:59 05:59 Hgb 12.5 L (13.0-17.5) gm/dL Hct 37.7 L (39.0-53.0) % APTT (22.0-30.0) sec BUN 21 H (9-20) mg/dL POC Glucose (mg/dL) 137 H (75-99) mg/dL Hemoglobin A1c (4.0-6.0) % Total Protein 5.9 L (6.3-8.2) g/dL Albumin 3.3 L (3.5-5.0) g/dL 12/13/19 Range/Units 05:59 Hgb (13.0-17.5) gm/dL Hct (39.0-53.0) % APTT 51.0 H (22.0-30.0) sec BUN (9-20) mg/dL POC Glucose (mg/dL) (75-99) mg/dL Hemoglobin A1c (4.0-6.0) % Total Protein (6.3-8.2) g/dL Albumin (3.5-5.0) g/dL Assessment and Plan Assessment: Pulmonary embolism Chronic intermittent asthma COPD Morbid obesity Dyslipidemia Hypertension hypertensive cardiovascular disease Type 2 diabetes mellitus Plan: Continue IV heparin Eliquis to be started 10 mg twice a day from today once approved Check duplex ultrasound of the both lower extremity reviewed no evidence of DVT Obtain reports from Lorenzo roach for computed tomography scan, reviewed confirmed presence of pulmonary embolism Time with Patient: Greater than 30
[2019-12-13 12:15] LABS: Glucose,Whole Blood 90 mg/dL (75-99)
[2019-12-13] MEDS: APIXABAN 5 MG TAB PO SCH ×2 (12:24→21:24)
[2019-12-13] MEDS: IOPAMIDOL CONTRAST (ORAL USE) VIAL PO PRN ×2 (13:27→13:59)
--- NOTE | 2019-12-13 13:50 | P.PN ---
Subjective Progress Note Date: 12/13/19 This is a 69-year-old man, a patient of Dr. Pinto. He has a known past medical history of COPD, diabetes, hyperlipidemia, hypertension and GERD. Patient reports having episodes of chest pain and shortness of breath over the last 2-[address] Pinto headset patient to to be seen by cardiology. They ordered a CTA of the chest at [facility]. According to patient he was told by the support team member that the test was positive for PE and to present to go to the hospital for treatment. CTA that was completed at [facility] reports correlate for right-sided PE. There is a 1.8 cm lesion on the dome of the liver. Abdominal MRI recommended. Patient was started on IV heparin in the ER. Patient has been seen by pulmonary service. The recommending to start patient on Eliquis tomorrow. Patient does report improvement in his chest pain and shortness of breath. He also had some dehydration with a creatinine of 1.28 has come down to 1.11. Venous Doppler was negative for DVT bilaterally. Patient denies any leg pain. Patient denies any traveling or being in a stationary position for any period of time. Denies any history of cancer. Denies any family history of blood clots. He denies any prior history of blood clots. 12/13/2019 patient is being treated for PE. He was switched over to Eliquis today. IV heparin discontinued. Insurance will cover the Eliquis patient has a $47 co-pay. Patient still reporting some shortness of breath and left-sided rib pain when he takes a deep breath or moves. Patient denies any nausea or vomiting. Reports regular bowel movements. Denies any difficulty urinating. Patient seen by oncology service. They've ordered a computed tomography scan of the abdomen and pelvis and neck Objective - Vital Signs Vital signs: Vital Signs Temp 97.5 F L 12/13/19 12:00 Pulse 70 12/13/19 12:00 Resp 20 12/13/19 12:00 BP 134/71 12/13/19 12:00 Pulse Ox 95 12/13/19 12:00 Intake & Output 12/12/19 12/13/19 12/13/19 18:59 06:59 18:59 Intake Total 1860 480 690 Output Total 2075 Balance -215 480 690 Weight 124.4 kg Intake: Oral 1860 480 690 Output: Urine 5 Other: Voiding Method Toilet Toilet Toilet # Voids 2 3 3 - Exam Head normocephalic Neck supple. Patient has small cyst palpable on left side of neck Lungs clear to auscultation bilaterally no wheezing or crackles Heart regular rate and rhythm S1-S2, no rub or gallop Abdomen is soft nontender nondistended positive bowel sounds no hepatosplenomegaly Extremities no edema Neuro alert and orientated to 3 - Labs CBC & Chem 7: 12/13/19 05:59 12/13/19 05:59 Labs: Abnormal Lab Results - Last 24 Hours (Table) 12/12/19 12/12/19 12/12/19 Range/Units 05:30 16:42 20:31 Hgb (13.0-17.5) gm/dL Hct (39.0-53.0) % APTT (22.0-30.0) sec BUN (9-20) mg/dL POC Glucose (mg/dL) 115 H 137 H (75-99) mg/dL Hemoglobin A1c 6.6 H (4.0-6.0) % Total Protein (6.3-8.2) g/dL Albumin (3.5-5.0) g/dL 12/13/19 12/13/19 12/13/19 Range/Units 05:59 05:59 05:59 Hgb 12.5 L (13.0-17.5) gm/dL Hct 37.7 L (39.0-53.0) % APTT 51.0 H (22.0-30.0) sec BUN 21 H (9-20) mg/dL POC Glucose (mg/dL) (75-99) mg/dL Hemoglobin A1c (4.0-6.0) % Total Protein 5.9 L (6.3-8.2) g/dL Albumin 3.3 L (3.5-5.0) g/dL Assessment and Plan Assessment: 1. Right-sided pulmonary embolism: Patient started on Eliquis. Venous Doppler negative for DVT. Pulmonary following 2. Acute kidney injury: Improved with IV fluids 3. Hyperkalemia possibly related to acute kidney injury. Now resolved. Creatinine has gone down from 5.4-4.9 4. Essential hypertension continue current medications 5. Diabetes mellitus type 2: Continue to hold metformin. Continue NovoLog sliding scale coverage. 6. Morbid obesity 7. History of COPD stable no evidence of exacerbation 8. Hyperlipidemia continue Lipitor 9. Incidental finding of a 1.8 centimeter lesion on the dome of the liver noted on CTA at [facility]. Patient evaluated by oncology they've ordered a computed tomography scan of the abdomen and pelvis and neck with contrast GI prophylaxis Protonix I performed an examination of the patient and discussed their management with the physician Linen Manager. I have reviewed the Physician Linen Manager's notes and agree with the documented findings and plan of care
--- NOTE | 2019-12-13 15:08 | CT ---
EXAMINATION TYPE: CT ChestAbdPelvis w con DATE OF EXAM: 12/13/2019 COMPARISON: NONE HISTORY: Left sided neck and upper chest swelling. CT DLP: 2787.4 mGycm. Automated Exposure Control for Dose Reduction was Utilized. CONTRAST: CT scan of the thorax, abdomen and pelvis is performed with IV Contrast, patient injected with 100 mL of Isovue 300. FINDINGS: LUNGS: Right apical pleural-parenchymal scarring is evident. Other scattered areas of linear pleural parenchymal scarring contiguous with the pleural surface are seen. The lungs are grossly clear, there is no concerning parenchymal mass or nodule identified. There is no pleural effusion or pneumothor ax seen. The tracheobronchial tree is patent. MEDIASTINUM: Mild coronary artery calcifications. There are no greater than 1 cm hilar or mediastinal lymph nodes. No pericardial effusion is seen. LIVER/GB: There is mild background hepatic steatosis, not limits evaluation for hepatic masses. There is also a 1.2 cm fluid attenuated simple hepatic cysts of the right hepatic lobe on image 62. PANCREAS: No significant abnormality is seen. SPLEEN: No splenomegaly. ADRENALS: No nodule or thickening. KIDNEYS: Bilateral renal sinus cysts are confirmed on delayed imaging. Kidneys enhance symmetrically. No hydronephrosis. BOWEL: No dilated large or small bowel. Oral contrast does not progress into the colon and therefore there is limited evaluation of the colon. GENITAL ORGANS: Prostate gland is heterogenous and upper limits of normal size measuring 4.5 cm. Cent ral zone calcifications are seen. LYMPH NODES: No greater than 1cm abdominal or pelvic lymph nodes are appreciated. OSSEOUS STRUCTURES: Following anterior osteophytes throughout the spine suggest diffuse idiopathic sk eletal hyperostosis. Overall moderate degenerative disc disease. OTHER: Severe atherosclerosis of the abdominal aorta and its branches. Minimal probable retroareolar bilateral gynecomastia although asymmetric, greater on the right than left. Herniation of mesenteric fat through the widened diaphragmatic hiatus is incidentally seen. IMPRESSION: 1. Hepatic steatosis and solitary simple 1.2 cm hepatic cyst. 2. Heterogenous and upper limits of normal size prostate gland. 3. Multifocal pleural scarring.
--- NOTE | 2019-12-13 15:13 | CT ---
EXAMINATION TYPE: CT soft tissue neck w con DATE OF EXAM: 12/13/2019 HISTORY: Left sided neck and upper chest swelling. COMPARISON: 01/09/2015 CT DLP: 520.7 mGycm. Automated Exposure Control for Dose Reduction was Utilized. TECHNIQUE: CT scan of the neck is performed with IV Contrast, patient injected with 100 mL of Isovue 300, axial images are obtained, coronal and sagittal reformatted images are reviewed. FINDINGS: Airway: No gross abnormality seen. Airway is maintained. Parotid/submandibular glands: There is asymmetric fatty atrophy of the parotid glands and submandibul ar glands. Carotid/Vascular Structures: Nonhemodynamically significant stenosis of less than 50% of the carotid bulbs bilaterally due to atheromatous plaquing. Minimal atheromatous plaquing of the right internal c arotid artery and its cervical portion. Common carotid arteries, carotid bulbs, and cervical portions of the internal carotid arteries appear patent. Vertebral arteries also appear grossly patent. Right vertebral artery is dominant. Osseous Structures: Moderate multilevel degenerative disc disease of the spine. Other: No suspicious adenopathy of the neck. IMPRESSION: No suspicious adenopathy in the neck in this patient with left-sided neck swelling. No a bnormal inflammatory change.
[2019-12-13 16:55] LABS: Glucose,Whole Blood 81 mg/dL (75-99)
--- NOTE | 2019-12-13 18:17 | P.CONS ---
History of Present Illness - Reason for Consult Consult date: 12/13/19 liver lesion, Pulmonary Embolism Requesting physician: Heydi Cintron - Chief Complaint Chest pain and shortness of breath - History of Present Illness This is a 69-year-old man, a patient of Dr. Pinto. He has a known past medical history of COPD, diabetes, hyperlipidemia, hypertension and GERD. Over the past 2-3 weeks he has noticed increased shortness of breath and chest pain. He was evaluated by cardiology and set up for outpatient CTA at [facility]. CTA revealed acute Pulmonary embolism and therefore he was advised to seek further evaluation at the hospital. He is now inpatient at [facility] and receiving heparin drip. Incidentally there was a 1.8cm lesion in dome of liver. Further evaluation with MRI was recommended. Also, hematology/oncology was consulted to further evaluate. Patient does have a CT Chest/abdomen and pelvis ordered. Will await results to determine if MRI needed. He denies any personal history of cancer, no weight loss, weight gain that patient has noticed. He denies any changes in bowels or bladder and states he is up to date on all his preventative care appointments. He quit smoking in the . Denies any family history of bl ood disorders or clotting issues. He has become more sedetary over the past few years. Patient was started on IV heparin in the ER and pulmonary was consulted regarding the new PE. We agree with starting patient on Eliquis tomorrow. Venous Doppler was negative for DVT bilaterally. He denied any recent traveling or long car rides. Review of Systems A 14 point review of systems assessed and completed and all negative except HPI Past Medical History Past Medical History: Asthma, COPD, Diabetes Mellitus, GERD/Reflux, Hyperlip idemia, Hypertension, Osteoarthritis (OA), Pulmonary Embolus (PE) Additional Past Medical History / Comment(s): SOME TROUBLE SWALLOWING History of Any Multi-Drug Resistant Organisms: None Reported Past Surgical History: Appendectomy, Joint Replacement Additional Past Surgical History / Comment(s): COLONOSCOPY, EGD, NODULE IN THROAT" RIGHT KNEE SURGERY-ARTHROTOMY, RIGHT AND LEFT TOTAL KNEE, PAIN CLINIC PROCEDURES, Past Anesthesia/Blood Transfusion Reactions: No Reported Reaction Past Psychological History: No Psychological Hx Reported Smoking Status: Former smoker Past Alcohol Use History: None Reported Additional Past Alcohol Use History / Comment(s): STARTED SMOKING AT AGE 17 QUIT IN 1992 SMOKED 3/4 PPD Past Drug Use History: None Reported - Past Family History Brother(s) Family Medical History: Cancer Sister(s) Family Medical History: Cancer Medications and Allergies Home Medications Medication Instructions Recorded Confirmed Type Albuterol Inhaler [Ventolin Hfa 2 puff INHALATION RT-QID PRN 05/01/18 12/11/19 History Inhaler] Aspirin 325 mg PO DAILY 05/01/18 12/11/19 History Atorvastatin [Lipitor] 40 mg PO DAILY 05/01/18 12/11/19 History Budesonide [Pulmicort] 0.5 mg INHALATION RT-BID 05/01/18 12/11/19 History Budesonide-Formot 160-4.5 Mcg 2 puff INHALATION RT-BID 05/01/18 12/11/19 History [Symbicort 160-4.5 Mcg Inhaler] Cholecalciferol (Vitamin D3) 2,000 unit PO DAILY 05/01/18 12/11/19 History [Vitamin D3] Fluticasone Nasal [place] [Flonase 2 spray EA NOSTRIL DAILY 05/01/18 12/11/19 History Nasal [place]] Lisinopril 40 mg PO DAILY 05/01/18 12/11/19 History Loratadine [Claritin] 10 mg PO DAILY 05/01/18 12/11/19 History Montelukast [Singulair] 10 mg PO DAILY 05/01/18 12/11/19 History Multivitamins, Thera [Multivitamin 1 tab PO DAILY 05/01/18 12/11/19 History (formulary)] Naproxen Sodium [Aleve] 220 mg PO DAILY 05/01/18 12/11/19 History Omeprazole 20 mg PO DAILY 05/01/18 12/11/19 History Pregabalin [Lyrica] 225 mg PO BID 05/01/18 12/11/19 History metFORMIN HCL [Glucophage] 500 mg PO DAILY 05/01/18 12/11/19 History Acetaminophen Tab [Tylenol Tab] 1,000 mg PO Q6H PRN 12/11/19 12/11/19 History Amoxicillin 1,000 mg PO ONCE PRN 12/11/19 12/11/19 History Calcium Carbonate 500 mg PO DAILY 12/11/19 12/11/19 History Ibuprofen [Motrin Ib] 400 mg PO Q6H PRN 12/11/19 12/11/19 History Ipratropium [place] [Ipratropium 2 sprays EA NOSTRIL TID 12/11/19 12/11/19 History [place] 0.03%] Ipratropium-Albuterol Nebulize 3 ml INHALATION RT-QID 12/11/19 12/11/19 History [Duoneb 0.5 mg-3 mg/3 ml Soln] Magnesium Oxide [Mag-Ox] 250 mg PO DAILY 12/11/19 12/11/19 History Triamterene/Hydrochlorothiazid 1 tab PO DAILY 12/11/19 12/11/19 History [Triamterene-Hctz 37.5-25 mg Tb] amLODIPine [Norvasc] 2.5 mg PO DAILY 12/11/19 12/11/19 History predniSONE 150 mg PO ONCE 12/11/19 12/11/19 History rOPINIRole HCL [Requip XL] 4 mg PO DAILY 12/11/19 12/11/19 History valACYclovir HCL [Valtrex] 2,000 mg PO BID PRN 12/11/19 12/11/19 History Apixaban [Eliquis Starter Pack 0 mg PO DIRECTED 30 Days #1 pack 12/12/19 Rx (for VTE)] Allergies Allergy/AdvReac Type Severity Reaction Status Date / Time No Known Allergies Allergy Verified 12/11/19 14:05 Physical Exam Vitals: Vital Signs Temp Pulse Pulse Resp BP Pulse Ox 12/13/19 15:56 70 95 12/13/19 12:00 97.5 F L 70 20 134/71 95 12/13/19 11:30 68 12/13/19 11:21 66 12/13/19 08:00 97.7 F 69 17 123/65 93 L 12/13/19 07:46 68 12/13/19 07:32 62 12/13/19 04:00 98.8 F 60 18 106/64 96 12/13/19 03:59 66 18 12/13/19 00:00 98.1 F 66 18 101/58 97 12/12/19 20:27 61 12/12/19 20:14 61 12/12/19 20:00 98.5 F 60 18 114/60 100 12/12/19 16:22 60 12/12/19 16:13 98 12/12/19 16:11 60 Intake and Output 12/13/19 12/13/19 12/13/19 06:59 14:59 22:59 Intake Total 480 690 Balance 480 690 Intake: Oral 480 690 Other: Voiding Method Toilet Toilet # Voids 3 3 Weight 124.4 kg Gen: NAD, obese Head: NC, AT Neck: Left neck palpable, fatty tissue like abnormality on palpation Heart: Reg Lungs: CTA bilateral, no increased effort Abdomen: Obese, soft, ND, no hepatomegaly noted Extremities: No edema Neuro - nonfocal Mood calm Results CBC & Chem 7: 12/13/19 05:59 12/13/19 05:59 Labs: Abnormal Lab Results - Last 24 Hours (Table) 12/12/19 12/12/19 12/13/19 Range/Units 16:42 20:31 05:59 Hgb 12.5 L (13.0-17.5) gm/dL Hct 37.7 L (39.0-53.0) % APTT (22.0-30.0) sec BUN (9-20) mg/dL POC Glucose (mg/dL) 115 H 137 H (75-99) mg/dL Total Protein (6.3-8.2) g/dL Albumin (3.5-5.0) g/dL 12/13/19 12/13/19 Range/Units 05:59 05:59 Hgb (13.0-17.5) gm/dL Hct (39.0-53.0) % APTT 51.0 H (22.0-30.0) sec BUN 21 H (9-20) mg/dL POC Glucose (mg/dL) (75-99) mg/dL Total Protein 5.9 L (6.3-8.2) g/dL Albumin 3.3 L (3.5-5.0) g/dL CT scan - abdomen: report reviewed CT scan - chest: report reviewed CT scan - pelvis: report reviewed Assessment and Plan Plan: Assessment and Recommendations: 1. Acute Right Pulm embolism: - No significant provoking factors - Review of CT scans show no evidence of obvious malignancy, mild enlargement of prostate - Agree with Mariella, minimum 6 months: FOr first event unprovoked PE. He can follow-up in office in 1-2 months to undergo hypercoaguable work-up if he chooses. 2. Abnormality of the liver: - Incidental 1.8cm lesion noted on CT at [place] - CT in house noted cystic lesion, May obtain MRI for baseline but likely hemangioma versus cystic lesion. MRI would be best for determination. - LFTs within normal Thank you for allowing us to participate in the care of your patient we will follow along with you
[2019-12-13 20:36] LABS: Glucose,Whole Blood 125 mg/dL (75-99)
[2019-12-14 06:12] LABS: Glucose,Whole Blood 95 mg/dL (75-99)
[2019-12-14] MEDS: INSULIN ASPART (NovoLOG) 100 UNIT/ML VIAL SQ SCH ×2 (06:20→12:45)
[2019-12-14 06:45] LABS: Basophils # (A) 0.1 k/uL (0-0.2); Basophils % (A) 1 %; Eosinophils # (A) 0.1 k/uL (0-0.7); Eosinophils % (A) 2 %; HCT 39.5 % (39.0-53.0); HGB 12.9 gm/dL (13.0-17.5); Lymphocytes # (A) 1.7 k/uL (1.0-4.8); Lymphocytes % (A) 31 %; MCH 28.2 pg (25.0-35.0); MCHC 32.6 g/dL (31.0-37.0); MCV 86.4 fL (80.0-100.0); Mean Platelet Volume 8.6; Monocytes # (A) 0.5 k/uL (0-1.0); Monocytes % (A) 9 %; Neutrophils % (A) 54 %; Platelet Count 262 k/uL (150-450); RBC 4.58 m/uL (4.30-5.90); RDW 14.4 % (11.5-15.5); WBC 5.5 k/uL (3.8-10.6)
[2019-12-14 06:55] LABS: Albumin 3.5 g/dL (3.5-5.0); Calcium 8.9 mg/dL (8.4-10.2); Total Bilirubin 0.3 mg/dL (0.2-1.3); Total Protein 6.1 g/dL (6.3-8.2)
[2019-12-14] MEDS: IPRATROPIUM-ALBUTEROL 3 ML NEB INHALATION SCH ×2 (07:59→11:50)
[2019-12-14] MEDS: BUDESONIDE 0.5 MG/2 ML NEBU INHALATION SCH (07:59)
[2019-12-14] MEDS: FLUTICASONE 50MCG/SPRAY NASAL 16GM EA NOSTRIL SCH (08:58)
[2019-12-14] MEDS: IPRATROPIUM BROMIDE 0.06% NASAL SPRAY (15 ML) EA NOSTRIL SCH ×2 (08:58→09:00)
[2019-12-14] MEDS: TRIAMTERENE-HCTZ 37.5-25MG 1 EACH TAB PO SCH (08:59)
[2019-12-14] MEDS: PANTOPRAZOLE 40 MG TABLET PO SCH (08:59)
[2019-12-14] MEDS: LORATADINE 10 MG TAB PO SCH (08:59)
[2019-12-14] MEDS: CALCIUM CARBONATE 500 MG CHEWABLE PO SCH (08:59)
[2019-12-14] MEDS: LISINOPRIL 20 MG TAB PO SCH (08:59)
[2019-12-14] MEDS: PREGABALIN 75 MG CAP PO SCH (08:59)
[2019-12-14] MEDS: ATORVASTATIN 40 MG TAB PO SCH (08:59)
[2019-12-14] MEDS: NAPROXEN 250 MG TAB PO SCH (08:59)
[2019-12-14] MEDS: MULTIVITAMINS, THERA 1 EACH TAB PO SCH (09:00)
[2019-12-14] MEDS: CHOLECALCIFEROL 1,000 UNIT TAB PO SCH (09:00)
[2019-12-14] MEDS: MONTELUKAST 10 MG TAB PO SCH (09:00)
[2019-12-14] MEDS: APIXABAN 5 MG TAB PO SCH (09:00)
[2019-12-14] MEDS: MAGNESIUM OXIDE 400 MG TAB PO SCH (09:00)
[2019-12-14] MEDS: amLODIPine 2.5 MG TAB PO SCH (09:00)
[2019-12-14] MEDS ORDERED: ASPIRIN 81 MG PO SCH (09:00)
[2019-12-14 09:17] VITALS: TEMP 97.4
--- NOTE | 2019-12-14 10:23 | P.PN ---
Subjective Progress Note Date: 12/14/19 Principal diagnosis: - Constitutional General appearance: cooperative, disheveled, morbidly obese - EENT Eyes: EOMI, PERRLA Ears: bilateral: normal - Neck Neck: normal ROM Carotids: bilateral: upstroke normal Thyroid: bilateral: normal size - Respiratory Respiratory: bilateral: CTA - Cardiovascular Rhythm: regular Heart sounds: normal: S1, S2 - Neurologic Neurologic: CNII-XII intact - Musculoskeletal Musculoskeletal: gait normal, generalized weakness, strength equal bilaterally - Psychiatric Psychiatric: A&O x's 3, appropriate affect, intact judgment & insight 12/14/2019, patient seen eval examined during the rounds labs reviewed medications reviewed doing well off of heparin Eliquis has been started 12/13/2019, patient seen eval examined during the rounds labs reviewed medications reviewed computed tomography scan from a [place] reviewed confirm presence of pulmonary embolism, patient is on heparin doing well asthma symptoms are well controlled, patient is being changed to oral anticoagulants This is a 69-year-old male who was seen eval reexamined on the third floor, patient is morbidly obese 69-year-old male of Dr. Enedina day patient has been having off-and-on chest tightness and shortness of breath for 2-3 week going on he had the some tightness in the calf several weeks ago with sharp pain which is spontaneously resolved, patient has seen his black topper their advice a spiral computed tomography scan of the chest came back positive for pulmonary embolism, patient has been admitted to the computed tomography scan was done at [facility] currently patient has been on heparin, he had the bilateral lower extremity edema as well Objective - Vital Signs Vital signs: Vital Signs Temp 97.4 F L 12/14/19 08:50 Pulse 83 12/14/19 08:50 Resp 18 12/14/19 08:50 BP 126/73 12/14/19 08:50 Pulse Ox 93 L 12/14/19 08:50 Intake & Output 12/13/19 12/14/19 12/14/19 18:59 06:59 18:59 Intake Total 690 702 420 Balance 690 702 420 Weight 124.1 kg Intake: Oral 690 702 420 Other: Voiding Method Toilet Toilet # Voids 3 2 - Exam - Constitutional General appearance: cooperative, disheveled, morbidly obese - EENT Eyes: EOMI, PERRLA Ears: bilateral: normal - Neck Neck: normal ROM Carotids: bilateral: upstroke normal Thyroid: bilateral: normal size - Respiratory Respiratory: bilateral: CTA - Cardiovascular Rhythm: regular Heart sounds: normal: S1, S2 - Neurologic Neurologic: CNII-XII intact - Musculoskeletal Musculoskeletal: gait normal, generalized weakness, strength equal bilaterally - Psychiatric Psychiatric: A&O x's 3, appropriate affect, intact judgment & insight - Labs CBC & Chem 7: 12/14/19 05:44 12/14/19 05:44 Labs: Abnormal Lab Results - Last 24 Hours (Table) 12/13/19 12/14/19 12/14/19 Range/Units 20:34 05:44 05:44 Hgb 12.9 L (13.0-17.5) gm/dL Sodium 136 L (137-145) mmol/L BUN 23 H (9-20) mg/dL POC Glucose (mg/dL) 125 H (75-99) mg/dL ALT 51 H (4-49) U/L Total Protein 6.1 L (6.3-8.2) g/dL Assessment and Plan Assessment: Pulmonary embolism Chronic intermittent asthma COPD Morbid obesity Dyslipidemia Hypertension hypertensive cardiovascular disease Type 2 diabetes mellitus Plan: Eliquis to be started 10 mg twice a day from today once approved Check duplex ultrasound of the both lower extremity reviewed no evidence of DVT Obtain reports from Lorenzo roach for computed tomography scan, reviewed confirmed presence of pulmonary embolism Agree with discharge planning Time with Patient: Greater than 30
[2019-12-14 12:09] LABS: Glucose,Whole Blood 90 mg/dL (75-99)
[2019-12-14 13:21] VITALS: BP 123/68; PULSE 67; RESP 16
--- NOTE | 2019-12-14 13:32 | P.PN ---
Subjective Progress Note Date: 12/14/19 Principal diagnosis: Acute Pulm embolism Objective - Vital Signs Vital signs: Vital Signs Temp 97.4 F L 12/14/19 08:50 Pulse 74 12/14/19 11:58 Resp 16 12/14/19 11:30 BP 123/68 12/14/19 11:30 Pulse Ox 98 12/14/19 11:30 Intake & Output 12/13/19 12/14/19 12/14/19 18:59 06:59 18:59 Intake Total 690 702 420 Balance 690 702 420 Weight 124.1 kg Intake: Oral 690 702 420 Other: Voiding Method Toilet Toilet Toilet # Voids 3 2 1 - Exam Gen: NAD, obese Head: NC, AT Neck: Left neck palpable, fatty tissue like abnormality on palpation Heart: Reg Lungs: CTA bilateral, no increased effort Abdomen: Obese, soft, ND, no hepatomegaly noted Extremities: No edema Neuro - nonfocal Mood calm - Labs CBC & Chem 7: 12/14/19 05:44 12/14/19 05:44 Labs: Abnormal Lab Results - Last 24 Hours (Table) 12/13/19 12/14/19 12/14/19 Range/Units 20:34 05:44 05:44 Hgb 12.9 L (13.0-17.5) gm/dL Sodium 136 L (137-145) mmol/L BUN 23 H (9-20) mg/dL POC Glucose (mg/dL) 125 H (75-99) mg/dL ALT 51 H (4-49) U/L Total Protein 6.1 L (6.3-8.2) g/dL Assessment and Plan Plan: Assessment and Recommendations: 1. Acute Right Pulm embolism: - No significant provoking factors - Review of CT scans show no evidence of obvious malignancy, mild enlargement of prostate - Agree with Eliquis, minimum 6 months: FOr first event unprovoked PE. He can follow-up in office in 1-2 months to undergo hypercoaguable work-up if he chooses. 2. Abnormality of the liver: - Incidental 1.8cm lesion noted on CT at [place] - CT in house noted cystic lesion, May obtain MRI for baseline but likely hem angioma versus cystic lesion. MRI would be best for determination. - LFTs within normal Plan: Discharge on eliquis or xarelto follow-up in office 2 months for possible hypercoaguable work-up, MRI liver lesion as outpatient, was not able to fit in machine inpatient, advised to follow-up with PCP regarding setting up open MRI outpatient within 3 months Thank you for allowing us to participate in the care of your patient we will follow along with you
--- NOTE | 2019-12-14 15:30 | P.DS ---
Providers Date of admission: 12/11/19 16:01 Expected date of discharge: 12/14/19 Attending physician: Marta Resendez Consults: 12/11/19 16:01 Consult Physician Urgent Consulting Provider: Calderon Lott Consult Reason/Comments: Pulmonary embolism Do you want consulting provider notified?: Yes 12/12/19 15:14 Consult Physician Routine Consulting Provider: Jim Kevin Consult Reason/Comments: liver lesion on CTA Do you want consulting provider notified?: Yes Primary care physician: Ginger Pinto Hospital Course: Diagnoses on discharge: 1. Right-sided pulmonary embolism: Patient started on Eliquis. Venous Doppler negative for DVT. Pulmonary following 2. Acute kidney injury: Improved with IV fluids 3. Hyperkalemia possibly related to acute kidney injury. Now resolved. Creatinine has gone down from 5.4-4.9 4. Essential hypertension continue current medications 5. Diabetes mellitus type 2: Continue to hold metformin. Continue NovoLog sliding scale coverage. 6. Morbid obesity 7. History of COPD stable no evidence of exacerbation 8. Hyperlipidemia continue Lipitor 9. Incidental finding of a 1.8 centimeter lesion on the dome of the liver noted on CTA at [facility]. Patient evaluated by oncology they've ordered a computed tomography scan of the abdomen and pelvis and neck with contrast Hospital course: This is a 69-year-old man, a patient of Dr. Pinto. He has a known past medical history of COPD, diabetes, hyperlipidemia, hypertension and GERD. Patient reports having episodes of chest pain and shortness of breath over the last 2-[address] Pinto headset patient to to be seen by cardiology. They ordered a CTA of the chest at [facility]. According to patient he was told by the drupal web developer that the test was positive for PE and to present to go to the hospital for treatment. CTA that was completed at [facility] reports correlate for right-sided PE. There is a 1.8 cm lesion on the dome of the liver. Abdominal MRI recommended. Patient was started on IV heparin in the ER. Patient has been seen by pulmonary service. The recommending to start patient on Eliquis tomorrow. Patient does report improvement in his chest pain and shortness of breath. He also had some dehydration with a creatinine of 1.28 has come down to 1.11. Venous Doppler was negative for DVT bilaterally. Patient denies any leg pain. Patient denies any traveling or being in a stationary position for any period of time. Denies any history of cancer. Denies any family history of blood clots. He denies any prior history of blood clots. 12/13/2019 patient is being treated for PE. He was switched over to Eliquis today. IV heparin discontinued. Insurance will cover the Eliquis patient has a $47 co-pay. Patient still reporting some shortness of breath and left-sided rib pain when he takes a deep breath or moves. Patient denies any nausea or vo miting. Reports regular bowel movements. Denies any difficulty urinating. Patient seen by oncology service. They've ordered a computed tomography scan of the abdomen and pelvis and neck On 12/14/2019 patient was seen and examined on the medical floor he is alert and oriented 3 in no apparent distress he denies any symptoms at this time he was evaluated by pulmonology and hematology and was cleared for discharge on Eliquis 10 mg twice daily for 7 days then 5 mg twice daily for at least 6 months follow- up was primary care physician within one week Plan - Discharge Summary Discharge Rx Participant: No New Discharge Prescriptions: New Apixaban [Eliquis Starter Pack (for VTE)] 0 mg PO DIRECTED 30 Days #1 pack Apixaban [Eliquis] 10 mg PO BID tab Continue metFORMIN HCL [Glucophage] 500 mg PO DAILY Omeprazole 20 mg PO DAILY Lisinopril 40 mg PO DAILY Budesonide-Formot 160-4.5 Mcg [Symbicort 160-4.5 Mcg Inhaler] 2 puff INHALATION RT-BID Albuterol Inhaler [Ventolin Hfa Inhaler] 2 puff INHALATION RT-QID PRN PRN Reason: Shortness Of Breath Budesonide [Pulmicort] 0.5 mg INHALATION RT-BID Cholecalciferol (Vitamin D3) [Vitamin D3] 2,000 unit PO DAILY Multivitamins, Thera [Multivitamin (formulary)] 1 tab PO DAILY Loratadine [Claritin] 10 mg PO DAILY Aspirin 325 mg PO DAILY Montelukast [Singulair] 10 mg PO DAILY Fluticasone Nasal [place] [Flonase Nasal [place]] 2 spray EA NOSTRIL DAILY Pregabalin [Lyrica] 225 mg PO BID Atorvastatin [Lipitor] 40 mg PO DAILY Acetaminophen Tab [Tylenol] 1,000 mg PO Q6H PRN PRN Reason: Fever And/ Or Pain amLODIPine [Norvasc] 2.5 mg PO DAILY Calcium Carbonate 500 mg PO DAILY Ipratropium [place] [Ipratropium [place] 0.03%] 2 sprays EA NOSTRIL TID Ipratropium-Albuterol Nebulize [Duoneb 0.5 mg-3 mg/3 ml Soln] 3 ml INHALATION RT-QID Magnesium Oxide [Mag-Ox] 250 mg PO DAILY rOPINIRole HCL [Requip XL] 4 mg PO DAILY Triamterene/Hydrochlorothiazid [Triamterene-Hctz 37.5-25 mg Tb] 1 tab PO DAILY valACYclovir HCL [Valtrex] 2,000 mg PO BID PRN PRN Reason: FIRST SIGN Discontinued Naproxen Sodium [Aleve] 220 mg PO DAILY Amoxicillin 1,000 mg PO ONCE PRN PRN Reason: DENTAL APPT Ibuprofen [Motrin Ib] 400 mg PO Q6H PRN PRN Reason: Fever And/ Or Pain predniSONE 150 mg PO ONCE Discharge Medication List Albuterol Inhaler [Ventolin Hfa Inhaler] 2 puff INHALATION RT-QID PRN 05/01/18 [History] Aspirin 325 mg PO DAILY 05/01/18 [History] Atorvastatin [Lipitor] 40 mg PO DAILY 05/01/18 [History] Budesonide [Pulmicort] 0.5 mg INHALATION RT-BID 05/01/18 [History] Budesonide-Formot 160-4.5 Mcg [Symbicort 160-4.5 Mcg Inhaler] 2 puff INHALATION RT-BID 05/01/18 [History] Cholecalciferol (Vitamin D3) [Vitamin D3] 2,000 unit PO DAILY 05/01/18 [History] Fluticasone Nasal [place] [Flonase Nasal [place]] 2 spray EA NOSTRIL DAILY 05/01/18 [History] Lisinopril 40 mg PO DAILY 05/01/18 [History] Loratadine [Claritin] 10 mg PO DAILY 05/01/18 [History] Montelukast [Singulair] 10 mg PO DAILY 05/01/18 [History] Multivitamins, Thera [Multivitamin (formulary)] 1 tab PO DAILY 05/01/18 [History] Omeprazole 20 mg PO DAILY 05/01/18 [History] Pregabalin [Lyrica] 225 mg PO BID 05/01/18 [History] metFORMIN HCL [Glucophage] 500 mg PO DAILY 05/01/18 [History] Acetaminophen Tab [Tylenol] 1,000 mg PO Q6H PRN 12/11/19 [History] Calcium Carbonate 500 mg PO DAILY 12/11/19 [History] Ipratropium [place] [Ipratropium [place] 0.03%] 2 sprays EA NOSTRIL TID 12/11/19 [History] Ipratropium-Albuterol Nebulize [Duoneb 0.5 mg-3 mg/3 ml Soln] 3 ml INHALATION RT-QID 12/11/19 [History] Magnesium Oxide [Mag-Ox] 250 mg PO DAILY 12/11/19 [History] Triamterene/Hydrochlorothiazid [Triamterene-Hctz 37.5-25 mg Tb] 1 tab PO DAILY 12/11/19 [History] amLODIPine [Norvasc] 2.5 mg PO DAILY 12/11/19 [History] rOPINIRole HCL [Requip XL] 4 mg PO DAILY 12/11/19 [History] valACYclovir HCL [Valtrex] 2,000 mg PO BID PRN 12/11/19 [History] Apixaban [Eliquis Starter Pack (for VTE)] 0 mg PO DIRECTED 30 Days #1 pack 12/12/19 [Rx] Apixaban [Eliquis] 10 mg PO BID tab 12/14/19 [Rx] Follow up Appointment(s)/Referral(s): Ginger Pinto MD [Primary Care Provider] - 1-2 days Fred Hunt MD [STAFF PHYSICIAN] - 4 Weeks (Chemical Librarian:) Patient Instructions/Handouts: Pulmonary Embolism (DC), Safe Use of Anticoagulants (DC) Activity/Diet/Wound Care/Special Instructions: Follow up MRI within 3 months, may follow up with primary for this.
== END 2019-12-14 15:20 | disposition home or self-care (01) | DRG 176 ==
LOC: EC 14:00 → 3SCARD 16:01
PROVIDERS: ADMIT Internal Medicine; ATTEND Internal Medicine
DX: I26.99 Other pulmonary embolism without acute cor pulmonale (principal); N17.9 Acute kidney failure, unspecified; J44.9 Chronic obstructive pulmonary disease, unspecified; K21.9 Gastro-esophageal reflux disease without esophagitis; M19.90 Unspecified osteoarthritis, unspecified site; E87.5 Hyperkalemia; E78.5 Hyperlipidemia, unspecified; E11.9 Type 2 diabetes mellitus without complications; E66.01 Morbid (severe) obesity due to excess calories; K76.9 Liver disease, unspecified; I11.9 Hypertensive heart disease without heart failure; J45.20 Mild intermittent asthma, uncomplicated; E86.0 Dehydration; Z90.49 Acquired absence of other specified parts of digestive tract; Z87.891 Personal history of nicotine dependence; Z80.9 Family history of malignant neoplasm, unspecified; Z86.711 Personal history of pulmonary embolism; Z98.890 Other specified postprocedural states; Z68.37 Body mass index [BMI] 37.0-37.9, adult; Z79.899 Other long term (current) drug therapy; Z79.82 Long term (current) use of aspirin; Z79.51 Long term (current) use of inhaled steroids; Z79.84 Long term (current) use of oral hypoglycemic drugs
CPT/HCPCS: 36415; 70491; 71260; 74177; 80053; 83036; 84153; 84154; 85025; 85610; 85730; 93970; 94640; 94760; 96365; 96375; 96376; 99291

== ENCOUNTER → 2019-12-19 | Outpatient (CLI) | payer MEDICARE, BC ==
--- NOTE | 2019-12-19 13:15 | MR ---
EXAMINATION TYPE: MR brain wo/w con DATE OF EXAM: 12/19/2019 COMPARISON: NONE HISTORY: Tremors, numbness, paresthesia of skin TECHNIQUE: Multiplanar, multisequence images of the brain and brainstem is performed without and with IV contras t, utilizing 13 mL intravenous Gadavist . FINDINGS: Diffusion weighted images demonstrate no evidence of a recent infarct or other diffusion ab normality. There is no extra-axial fluid collection. The ventricular system and cisternal spaces ar e symmetrically prominent compatible with age-related volume loss. There are few foci of T2/FLAIR hyp erintensity within the subcortical and to a lesser degree in the periventricular white matter, overal l mild burden for the patient's age. Midline structures demonstrate normal morphology. The craniocervical junction appears within normal limits. Post contrast images demonstrate no abnormal enhancement. The dural venous sinuses appear pa tent. The visualized sinuses are clear and the globes are intact. Mild leftward nasal septal deviatio n. IMPRESSION: 1. No acute infarct, midline shift or mass effect. No abnormal intracranial enhancement. No suspiciou s intracranial enhancing mass. 2. Mild burden nonspecific white matter change, most commonly on the basis of chronic microangiopathy . 3. Mild cerebral atrophy is global without lobar predilection. Considering the patient's tremors nucl ear medicine Jing scan could be performed.
== END | disposition home or self-care (01) ==
LOC: RADMRIMAIN 11:26
PROVIDERS: ATTEND Family Medicine
DX: R90.89 Other abnormal findings on diagnostic imaging of central nervous system (principal); G31.9 Degenerative disease of nervous system, unspecified; I73.9 Peripheral vascular disease, unspecified
CPT/HCPCS: 70553; A9585

== ENCOUNTER → 2020-01-01 | Outpatient (CLI) | payer MEDICARE, BC ==
[~2020-01-01] MED LIST changes: +IODINE/POTASS IOD (LUGOLS) BOTTLE TOPICAL ONE; -LACTATED RINGERS 1,000 ML IV SCH; -MIDAZOLAM 2 MG/2 ML VIAL IV PRN
--- NOTE | 2020-01-02 10:45 | NM ---
EXAMINATION TYPE: NM DatScan Brain SPECT DATE OF EXAM: 01/01/2020 COMPARISON: MRI brain December 19, 2019. HISTORY: History of tremors per order. Memory loss also per patient. TECHNIQUE: 10 drops of Lugol's solution was administered 1 hour prior to injection as a thyroid bloc emma agent. After the administration of 4.35 mCi I-123 Ioflupane DaTscan. Images obtained 3 hours p ost injection. SPECT images of the brain were acquired with axial and coronal reconstructions. FINDINGS: The DaTSCAN demonstrates balanced striatal loss to the caudate and putamina nucleii in the striata. This appearance is consistent with the loss of the pre-synaptic dopaminergic terminals. 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
== END | disposition home or self-care (01) ==
LOC: RADNMMAIN 10:49
PROVIDERS: ATTEND Family Medicine
DX: R25.1 Tremor, unspecified (principal)
CPT/HCPCS: 78803; A9584

== ENCOUNTER → 2020-03-13 | Outpatient (CLI) | payer MEDICARE, BC ==
--- NOTE | 2020-03-13 13:53 | CT ---
"EXAMINATION TYPE: CT angio chest DATE OF EXAM: 03/13/2020 COMPARISON: 12/13/2019 HISTORY: 69-year-old male I26.99, follow-up pulmonary embolism TECHNIQUE: Contiguous axial scanning of the chest performed with IV Contrast, patient injected with 1 00 mL of Isovue 370. Coronal/sagittal MIP reconstructions performed. CT DLP: 733 mGycm Automated exposure control for dose reduction was used. FINDINGS: Heart normal size without pericardial effusion. Scattered mild coronary artery calcifications are pre sent. Mildly ectatic aortic root at 3.6 cm and ascending aorta at 3.7 cm. Conventional arch vessel branchin g anatomy. Scattered mild atherosclerotic calcifications. No flattening of the interventricular septum or reflux of contrast into the hepatic veins. Satisfacto ry opacification of the pulmonary artery system. Small filling defect seen within a subsegmental bran ch of the basilar left lower lobe, axial images 110 and 111. Otherwise, no pulmonary embolus is seen. No thoracic lymphadenopathy by CT size criteria. Stable couple prominent 8 mm right hilar lymph nodes . Lungs show some strandy scarring or atelectasis at the bases. No consolidation or pleural effusion. Visualized upper abdomen shows stable 1.3 cm hypodensity right hepatic dome, probable cyst. Bones: Bridging anterior endplate spondylosis throughout the thoracic spine suggesting DISH. IMPRESSION: 1. SMALL FILLING DEFECT WITHIN A SUBSEGMENTAL BRANCH OF THE BASILAR LEFT LOWER LOBE SUGGESTS A SOLITA RY SMALL PERIPHERAL PULMONARY EMBOLUS. 2. OTHERWISE, NO ACUTE PULMONARY PROCESS. 3. DISH. A [place] level critical message alert has been initiated for Jim Kevin MD~[id number] via the [employer] | Critical Results System on 03/13/2020 1:50 PM. This message alert has been sent to Jim Kevin MD~B [id number] via the preferences provided by the clinician for the receipt of Radiology Critical Findings. [facility] [id number]."
== END | disposition home or self-care (01) ==
LOC: RADCTMAIN 10:28
PROVIDERS: ATTEND Internal Medicine Hematology & Oncology
DX: I26.99 Other pulmonary embolism without acute cor pulmonale (principal)
CPT/HCPCS: 82565; 84520; 71275; 36415; Q9967

== ENCOUNTER 2020-04-18 07:24 | Day surgery (SDC) | payer BC, MEDICARE ==
[2020-04-16 14:20] VITALS: BMI 38.2
[~2020-04-18 07:24] MED LIST changes: -IODINE/POTASS IOD (LUGOLS) BOTTLE TOPICAL ONE; +LACTATED RINGERS 1,000 ML IV SCH
[2020-04-18] MEDS ORDERED: LIDOCAINE 1% (10MG/ML) FOR IV START INTRADERMA ONE (07:53)
[2020-04-18 08:00] LABS: Glucose,Whole Blood 111 mg/dL (75-99)
[2020-04-18 08:02] VITALS: TEMP 97.4
[2020-04-18] MEDS ORDERED: PROPOFOL 10 MG/ML 20 ML VIAL IV ONE (08:20)
--- NOTE | 2020-04-18 08:39 | P.PCN ---
Date of Procedure: 04/18/20 Procedure(s) Performed: BRIEF HISTORY: Patient is a 69-year-old pleasant male scheduled for an elective colonoscopy as a part of evaluation change in bowel habits. He was recently diagnosed with bilateral pulmonary embolism and his been on Xarelto which has been on hold for 3 days. PROCEDURE PERFORMED: Colonoscopy. PREOPERATIVE DIAGNOSIS: Change in bowel habits. IV sedation per Anesthesia. PROCEDURE: After informed consent was obtained, the patient, was brought into the endoscopy unit. IV sedation was administered by Anesthesia under continuous monitoring. Digital rectal examination was normal. Initially the Olympus CF-160 flexible video colonoscope was then inserted in the rectum, gradually advanced into the cecum without any difficulty. Careful examination was performed as the scope was gradually being withdrawn. Ileocecal valve and the appendiceal orifice were visualized and appeared normal. Prep was excellent. Mucosa of the cecum, ascending colon, transverse colon, descending colon, sigmoid colon, and rectum appeared normal. Retroflexion was performed in the rectum and no lesions were seen. The patient tolerated the procedure well. IMPRESSION: Normal-appearing colon from rectum to cecum with no evidence of colitis or colorectal neoplasia. RECOMMENDATIONS: Findings of this examination were discussed with the patient as well as his family. He was advised to have a repeat screening colonoscopy in 10 years.
[2020-04-18 08:42] VITALS: RESP 16
[2020-04-18 08:57] VITALS: BP 114/64; PULSE 54
== END 2020-04-18 09:10 | disposition home or self-care (01) ==
LOC: ORWHC2ENDO 07:24
PROVIDERS: ATTEND Internal Medicine Gastroenterology
DX: R19.4 Change in bowel habit (principal); Z86.718 Personal history of other venous thrombosis and embolism; I10 Essential (primary) hypertension; E78.5 Hyperlipidemia, unspecified; J44.9 Chronic obstructive pulmonary disease, unspecified; G47.33 Obstructive sleep apnea (adult) (pediatric); M19.90 Unspecified osteoarthritis, unspecified site; K21.9 Gastro-esophageal reflux disease without esophagitis; R13.10 Dysphagia, unspecified; Z79.84 Long term (current) use of oral hypoglycemic drugs; Z79.51 Long term (current) use of inhaled steroids; Z79.01 Long term (current) use of anticoagulants; Z79.82 Long term (current) use of aspirin; Z79.899 Other long term (current) drug therapy
CPT/HCPCS: 45378; J2704

== ENCOUNTER → 2020-09-09 | Outpatient (CLI) | payer MEDICARE, BC ==
--- NOTE | 2020-09-09 14:00 | CT ---
EXAMINATION TYPE: CT angio chest DATE OF EXAM: 09/09/2020 12:57 PM COMPARISON: CTA chest March 13, 2020 HISTORY: Pulmonary embolism, shortness of breath CT DLP: 612 mGycm Automated exposure control for dose reduction was used. CONTRAST: CTA scan of the thorax is performed with IV Contrast, patient injected with 100 mL of Isovue 370, pul monary embolism protocol. MIP images are created and reviewed. FINDINGS: LUNGS: Mild bibasilar linear scarring and/or atelectasis is redemonstrated. No new nodules or masses. There is no pleural effusion or pneumothorax seen. The tracheobronchial tree is patent. Mild under lying emphysematous change. MEDIASTINUM: There is suboptimal bolus with more dense contrast in the aorta versus pulmonary arterie s on current study. Ascending aorta measures up to 3.8 cm in diameter image 74 without significant ch timur from prior. Mild to moderate mixed plaque in the arch extending into descending aorta. There is some heterogeneity in the periphery without convincing evidence for acute pulmonary embolism on curre nt study. There are no greater than 1 cm hilar or mediastinal lymph nodes. No cardiomegaly or peric ardial effusion is seen. Stable mild to moderate right ventricular dilatation. OTHER: Prominent bridging spurs in the thoracic spine redemonstrated. Visualized liver remains hypode nse consistent with diffuse fatty infiltration. Stable 1.7 cm thin-walled cyst posterior right hepati c lobe axial image 134. IMPRESSION: Suboptimal study without new or persistent pulmonary embolism identified currently.
== END | disposition home or self-care (01) ==
LOC: RADCTMAIN 11:41
PROVIDERS: ATTEND Internal Medicine Hematology & Oncology
DX: I26.99 Other pulmonary embolism without acute cor pulmonale (principal)
CPT/HCPCS: 82565; 84520; 71275; 36415; Q9967

== ENCOUNTER → 2021-02-13 | Outpatient (CLI) | payer MEDICARE ==
--- NOTE | 2021-02-13 15:31 | XR ---
EXAMINATION TYPE: XR lumbosacral spine min 4V DATE OF EXAM: 02/13/2021 COMPARISON: CT chest, abdomen and pelvis 12/13/2019 HISTORY: Chronic low back pain FINDINGS: There are 5 nonrib-bearing lumbar-type vertebral bodies. No definite loss of vertebral body height to suggest acute compression fracture. Bridging osteophytes are seen laterally, right greater than left. After*consultation of the abdominal aorta is severe with aneurysmal dilatation. Ultrasoun d could be obtained if clinically indicated. There is narrowing of the intervertebral disc spaces at L1-2, L2-3, L3-4, L4-5. Mild retrolisthesis of L3 on L4 and L4 on L5. Degenerative changes of the fac ets. No spondylolisthesis. IMPRESSION: 1. Multilevel degenerative changes of lumbar spine. No definite evidence of acute compression fractur e.
== END | disposition home or self-care (01) ==
LOC: RADXRMAIN 14:40
PROVIDERS: ATTEND Family Medicine
DX: M47.816 Spondylosis without myelopathy or radiculopathy, lumbar region (principal)
CPT/HCPCS: 72110

== ENCOUNTER → 2022-01-22 | Outpatient (CLI) | payer MEDICARE, BC ==
--- NOTE | 2022-01-23 13:03 | CA ---
Transthoracic Echo Report Name: Uzair Rodney Age: 71 Gender: M : 1950 Exam Date: 01/22/2022 13:14 Exam Location: [facility] Ht (in): 72 Wt (lb): 244 Ordering Physician: Calderon Lott MD Attending/Referring Phys: Sandy Collier [facility] Mechanical Integrity Engineer Wanda Hanna RDCS Procedure CPT: Indications: R06.00 EXERTIONAL DYSPNEA Cardiac Hx: No cardiac Hx Technical Quality: Fair Contrast 1: N/A Total Dose (mL): Contrast 2: Total Dose (mL): MEASUREMENTS (Male / Female) Normal Values 2D ECHO LV Diastolic Diameter PLAX 4.9 cm 4.2 - 5.9 / 3.9 - 5.3 cm LV Systolic Diameter PLAX 2.9 cm IVS Diastolic Thickness 1.3 cm 0.6 - 1.0 / 0.6 - 0.9 cm LVPW Diastolic Thickness 1.3 cm 0.6 - 1.0 / 0.6 - 0.9 cm LV Relative Wall Thickness 0.5 RV Internal Dim ED PLAX 3.3 cm LA Systolic Diameter LX 3.6 cm 3.0 - 4.0 / 2.7 - 3.8 cm LA Volume 59.8 cm 18 - 58 / 22 - 52 cm M-MODE Aortic Root Diameter MM 3.4 cm MV E Point Septal Separation 0.8 cm AV Cusp Separation MM 2.2 cm DOPPLER AV Peak Velocity 138.7 cm/s AV Peak Gradient 7.7 mmHg MV Area PHT 1.6 cm Mitral E Point Velocity 42.5 cm/s Mitral A Point Velocity 62.3 cm/s Mitral E to A Ratio 0.7 MV Deceleration Time 477.1 ms MV E' Velocity 8.0 cm/s Mitral E to MV E' Ratio 5.3 TR Peak Velocity 233.6 cm/s TR Peak Gradient 21.8 mmHg Right Ventricular Systolic Press 26.8 mmHg FINDINGS Left Ventricle Left ventricular ejection fraction is estimated at 55-60 %. Normal Left ventricular size, wall thickness, systolic function with no obvious regional wall motion abnormalities. Normal Left ventricular diastolic filling pattern. Right Ventricle Mild right ventricular dilatation. Right ventricular systolic pressure within normal limits. Right Atrium Normal right atrial size. Aneurysmal interatrial septum Left Atrium Mildly increased left atrial volume. Mitral Valve Structurally normal mitral valve. No mitral stenosis, regurgitation or prolapse. Aortic Valve Aortic valve sclerosis. Trileaflet aortic valve. Tricuspid Valve Mild tricuspid regurgitation. Pulmonic Valve Trace pulmonic regurgitation. Pericardium Normal pericardium. Aorta Normal size aortic root and proximal ascending aorta. 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 Ruben Webster MD (Electronically Signed) Final Date: 23 January 2022 13:02
== END | disposition home or self-care (01) ==
LOC: RADECHMAIN 13:08
PROVIDERS: ATTEND Internal Medicine Pulmonary Disease
DX: I25.3 Aneurysm of heart (principal); I51.7 Cardiomegaly
CPT/HCPCS: 93306

== ENCOUNTER → 2022-06-24 | Outpatient (CLI) | payer MEDICARE, BC ==
[2022-06-24 23:13] LABS: HGB 13.6 g/dL (13.0-17.0); MCH 28.8 pg (27.0-32.0); MCHC 32.4 g/dL (32.0-37.0); Mean Platelet Volume 11.6 fL (9.5-12.2); NRBC Per 100 WBC 0 /100 WBCS (0.0-0.0); Platelet Count 224 X 10*3/uL (140-440); RBC 4.72 X 10*6/uL (4.40-5.60); RDW 14.6 % (11.5-14.5); WBC 5.24 X 10*3/uL (4.50-10.00)
[2022-06-24 23:15] LABS: African American GFR (CKD) 86.8 (60.0-200.0); Anion Gap 8.2 mmol/L (10.00-18.00); Blood Urea Nitrogen 14.5 mg/dL (9.0-27.0); Carbon Dioxide 28.8 mmol/L (20.0-27.5); Non-African American GFR(CKD) 74.9 (60.0-200.0); Potassium 3.7 mmol/L (3.5-5.5)
== END | disposition home or self-care (01) ==
LOC: LABPAT 14:47
PROVIDERS: ATTEND Internal Medicine
DX: Z01.812 Encounter for preprocedural laboratory examination (principal); R06.02 Shortness of breath
CPT/HCPCS: 36415; 80051; 82565; 84520; 85027

== ENCOUNTER 2022-07-05 07:44 | Day surgery (SDC) | payer MEDICARE, BC ==
[~2022-07-05 07:44] MED LIST changes: +ALPRAZolam 0.25 MG TAB PO PRN; +ALPRAZolam 0.5 MG TAB PO PRN; +ASPIRIN 325 MG TAB PO STA; +ATORVASTATIN 80 MG TAB PO STA; +HEPARIN SODIUM,PORCINE 10,000 UNIT in SODIUM CHLORIDE 0.9% 1,000 ML IRRIGATION PRN; +HEPARIN SODIUM,PORCINE 2,500 UNIT in SODIUM CHLORIDE 0.9% 250 ML IRRIGATION PRN; -LACTATED RINGERS 1,000 ML IV SCH; +NITROGLYCERIN SL TABS 0.4 MG TAB SUBLINGUAL PRN; +SODIUM CHLORIDE 0.9% 1,000 ML in EMPTY BAG 1 BAG IV SCH
[2022-07-05] MEDS ORDERED: SODIUM CHLORIDE 0.9% 1,000 ML IV ONE (08:08)
[2022-07-05 08:25] LABS: Glucose,Whole Blood 113 mg/dL (70-110)
[2022-07-05 08:26] VITALS: RESP 16; TEMP 97.7
[2022-07-05] MEDS ORDERED: VERAPAMIL 2.5 MG/ML 2 ML AMP ONE (08:59)
[2022-07-05] MEDS ORDERED: fentaNYL (PF) 50 MCG/ML 2 ML AMP ONE (08:59)
[2022-07-05] MEDS ORDERED: HEPARIN SODIUM 1,000 UN/ML (10ML VL) ONE (09:03)
[2022-07-05] MEDS ORDERED: fentaNYL (PF) 50 MCG/ML 2 ML AMP IV ONE (09:13)
[2022-07-05] MEDS ORDERED: MIDAZOLAM 2 MG/2 ML VIAL IV ONE (09:13)
[2022-07-05] MEDS ORDERED: LIDOCAINE 1% INJ 10MG/ML (30 ML VIAL-PF) SQ ONE (09:14)
[2022-07-05] MEDS ORDERED: VERAPAMIL SYRINGE (5 MG/10 ML) INTRAARTER ONE (09:15)
[2022-07-05] MEDS ORDERED: HEPARIN SODIUM 1,000 UN/ML (10ML VL) IV ONE (09:17)
[2022-07-05] MEDS ORDERED: IOPAMIDOL-370 125ML BTL INJ ONE (09:32)
--- NOTE | 2022-07-05 09:44 | P.CARDCATH ---
Description of Procedure: PROCEDURES PERFORMED: Left heart catheterization, bilateral coronary angiography INDICATION: Abnormal stress test CONSENT:I have discussed the risks, benefits and alternative therapies for the above-mentioned procedure and for both sedation/analgesia as well as necessary blood product administration, if indicated, as they pertain to this patient. The patient has indicated understanding and acceptance of the risks and procedures discussed. PROCEDURE: After the risks, benefits and alternatives of the above mentioned procedure explained in detail with the patient, informed consent was obtained. Patient was taken to the catheterization lab and prepped and draped in usual fashion. 1% lidocaine was used to anesthetize the right radial artery. A 6- Libyan sheath was placed in the right radial artery using modified Seldinger technique. Left coronary angiography was performed with a 5-Libyan JL 3.5 catheter and right coronary angiography was performed with a 5-Libyan JR5 as well as AR2 catheter in various views. A 5-Libyan FR5 catheter was inserted into the left ventricle and pressure measurements were obtained. The right radial sheath was removed and a TR band was placed with hemostasis achieved. The patient tolerated the procedure well. Patient was transported back to the post catheterization holding area in stable condition. Conscious Sedation: Patient was monitored under the direct supervision of vision of myself for conscious sedation using Versed and fentanyl for a total duration of 19 minutes HEMODYNAMICS: Aorta: 132/76 LV: 138/5, LVEDP 17 SELECTIVE CORONARY ARTERIOGRAPHY: LEFT MAIN: The left main is a large caliber vessel which bifurcates into the LAD and circumflex. There is no significant stenosis. LEFT ANTERIOR DESCENDING CORONARY ARTERY: LAD is a large caliber vessel which wraps around to the apex. There is a proximal LAD 20-30% stenosis and otherwise mild luminal irregularities. LEFT CIRCUMFLEX CORONARY ARTERY: Left circumflex is a small caliber vessel without significant stenosis. RIGHT CORONARY ARTERY: The right coronary artery is a large caliber vessel which gives off a PDA and PLV branch and is the dominant vessel. There is a mid RCA 30-40% stenosis and otherwise mild luminal irregularities. FINAL IMPRESSION: 1. Mild CAD as described above including LAD 20-30% stenosis and mid RCA 30-40% stenosis 2. High normal left sided filling pressures PLAN: 1. Aggressive risk factor modification per most recent ACC/AHA guidelines. 2. Follow-up in the office in 1-2 weeks.
[2022-07-05 14:20] VITALS: BP 141/67; PULSE 76
== END 2022-07-05 15:01 | disposition home or self-care (01) ==
LOC: CATHCVL 07:44
PROVIDERS: ATTEND Internal Medicine
DX: I25.10 Atherosclerotic heart disease of native coronary artery without angina pectoris (principal); R94.39 Abnormal result of other cardiovascular function study; J44.9 Chronic obstructive pulmonary disease, unspecified; I10 Essential (primary) hypertension; E78.5 Hyperlipidemia, unspecified; E11.9 Type 2 diabetes mellitus without complications; Z86.711 Personal history of pulmonary embolism; G47.33 Obstructive sleep apnea (adult) (pediatric); I87.2 Venous insufficiency (chronic) (peripheral); I25.3 Aneurysm of heart; Z72.0 Tobacco use; Z79.01 Long term (current) use of anticoagulants; Z79.899 Other long term (current) drug therapy
CPT/HCPCS: 93458; C1769; C1894; J2250; J2001; J3010; J1644; Q9967

== ENCOUNTER → 2023-09-27 | Outpatient (CLI) | payer MEDICARE, BC ==
--- NOTE | 2023-10-02 07:45 | CT ---
EXAMINATION TYPE: CT chest wo con CT DLP: 461.90 mGycm, Automated exposure control for dose reduction was used. DATE OF EXAM: 09/27/2023 12:33 PM COMPARISON: CT angiogram chest 09/09/2020 . CLINICAL INDICATION:Male, 72 years old with history of R06.00 I27.81; PHH, Follow up on blood clot pt had in 2019. Hx COPD, HTN. TECHNIQUE: Multiple axial images were obtained through the chest. Sagittal and coronal reformats were created for review. Contrast used: mL of (None if empty) Oral contrast used: (None if empty) FINDINGS: Examination limited by lack of IV contrast. Specifically, follow-up for any known embolus. LUNGS/ PLEURA: Mild bibasilar scarring or atelectasis. Tiny calcified granuloma along the right obliq ue fissure. No concerning sizable nodule, mass, or airspace consolidation. Mildly prominent pleural f at posteriorly on the left. No sizable pleural effusion. No pneumothorax. AIRWAY: Central airways are patent. LOWER NECK: No significant findings. MEDIASTINUM: No gross evidence of adenopathy. HEART: Heart size upper normal. Moderate coronary artery calcification and/or stents. No appreciable pericardial effusion. VASCULATURE: Moderate atherosclerotic calcifications of the aorta and branches. Ascending aorta is 4 CM, descending is 3.1 CM. Aorta is considered ectatic. Pulmonary trunk measures 2.8 CM. Vessels oth erwise not further assessed without contrast. SOFT TISSUES/LYMPH NODES: Unremarkable soft tissues. No axillary adenopathy. UPPER ABDOMEN: A hypodense lesion in the posterior right hepatic lobe, appears essentially unchanged from the prior contrast study, measuring up to 2.5 x 2.2 cm. Moderate calcification of the upper abdo suresh aorta and branches with moderate stenosis of the proximal celiac and superior mesenteric arteri es suspected. MUSCULOSKELETAL: No acute osseous abnormality. Moderate disc degeneration changes are present through out the included thoracolumbar spine. Mild eventration along the diaphragm bilaterally. IMPRESSION: 1. No acute chest abnormality demonstrated on unenhanced examination. 2. Other stable chronic and likely incidental findings, as described above.
== END | disposition home or self-care (01) ==
LOC: RADCTMAIN 12:14
PROVIDERS: ATTEND Internal Medicine Pulmonary Disease
DX: I27.81 Cor pulmonale (chronic) (principal); J44.9 Chronic obstructive pulmonary disease, unspecified; G47.33 Obstructive sleep apnea (adult) (pediatric); R06.00 Dyspnea, unspecified; E66.9 Obesity, unspecified; J98.4 Other disorders of lung
CPT/HCPCS: 71250